=== PATIENT | female | born 1970 | race American Indian/Alaskan Native ===

== ENCOUNTER 2017-03-13 12:03 | Emergency (ER) | payer MEDICAID, OTHER ==
[2017-03-13 12:33] VITALS: BP 123/89
[2017-03-13 13:02] LABS: Basophils % (Auto) 0.4 % (0.0-1.8); Eosinophils % (Auto) 1.3 % (0.0-4.3); Hematocrit 39.2 % (30.3-42.9); Hemoglobin 12.1 gm/dl (10.1-14.3); Mean Corpuscular HGB Conc 31 % (30-34); Mean Corpuscular Volume 73 fl (79-97); Platelet Count 234 K/mm3 (140-440); Red Blood Count 5.34 M/mm3 (3.65-5.03); Red Cell Distribution Width 14.4 % (13.2-15.2); White Blood Count 9.1 K/mm3 (4.5-11.0)
[2017-03-13 13:09] LABS: Mean Corpuscular Hemoglobin 23 pg (28-32)
[2017-03-13 13:13] LABS: Alanine Aminotransferase 10 units/L (7-56); Albumin 3.5 g/dL (3.9-5); Albumin/Globulin Ratio 0.8 %; Alkaline Phosphatase 83 units/L (35-129); Anion Gap 18 mmol/L; Blood Urea Nitrogen 9 mg/dL (7-17); Calcium 9.3 mg/dL (8.4-10.2); Carbon Dioxide 24 mmol/L (22-30); Chloride 96.2 mmol/L (98-107); Glucose 362 mg/dL (65-100); Lipase 43 units/L (13-60); Potassium 5.1 mmol/L (3.6-5.0); Sodium 133 mmol/L (137-145); Total Protein 7.8 g/dL (6.3-8.2)
[2017-03-13 15:31] LABS: Bilirubin,Urine NEG (Negative); Blood,Urine NEG (Negative); Ketones,Urine 20 mg/dL (Negative); Leukocyte Esterase,Urine NEG (Negative); Nitrite,Urine NEG (Negative); Protein,Urine <15 mg/dL mg/dL (Negative); Urobilinogen,Urine < 2.0 mg/dL (<2.0); WBC,Urine < 1.0 /HPF (0.0-6.0)
== END 2017-03-13 18:38 | disposition left against medical advice (07) ==
LOC: ED 12:03
DX: R50.9 Fever, unspecified (principal); R10.9 Unspecified abdominal pain; Z53.21 Procedure and treatment not carried out due to patient leaving prior to being seen by health care provider
CPT/HCPCS: 36415; 80053; 81001; 83690; 85025

== ENCOUNTER 2017-09-15 06:50 | Emergency (ER) | payer MEDICAID ==
[2017-09-15 07:11] VITALS: BP 125/78
[2017-09-15] MEDS ORDERED: DECADRON IM ONE (07:49)
[2017-09-15] MEDS ORDERED: DUONEB *Not for PRN Use IH ONE (07:49)
--- NOTE | 2017-09-15 07:57 | XRay Report ---
FINAL REPORT EXAM: XR CHEST ROUTINE 2V HISTORY: cough TECHNIQUE: PA and lateral chest radiographs PRIORS: None. FINDINGS: No mediastinal shift. Cardiac silhouette is not enlarged. No pneumothorax, effusion, or focal pulmonary opacity. No acute skeletal finding. IMPRESSION: No focal pulmonary opacity.
[2017-09-15 08:15] LABS: Basophils # (Auto) 0.1 K/mm3 (0.0-0.1); Basophils % (Auto) 0.7 % (0.0-1.8); Eosinophils # (Auto) 0.2 K/mm3 (0.0-0.4); Eosinophils % (Auto) 2.6 % (0.0-4.3); Hematocrit 36.6 % (30.3-42.9); Hemoglobin 11.8 gm/dl (10.1-14.3); Lymphocytes % (Auto) 25.6 % (13.4-35.0); Mean Corpuscular HGB Conc 32 % (30-34); Mean Corpuscular Volume 70 fl (79-97); Monocytes # (Auto) 0.5 K/mm3 (0.0-0.8); Platelet Count 227 K/mm3 (140-440); Red Blood Count 5.21 M/mm3 (3.65-5.03); Red Cell Distribution Width 15.1 % (13.2-15.2)
--- NOTE | 2017-09-15 08:15 | Emergency Department Report ---
- General Chief Complaint: Upper Respiratory Infection Stated Complaint: CHEST PAIN,HEADACHE,SORE THROAT Time Seen by Provider: 09/15/17 07:14 Source: patient Mode of arrival: Ambulatory Limitations: No Limitations - History of Present Illness Initial Comments: This is a 47-year-old female nontoxic, well nourished in appearance, no acute signs of distress presents to the ED with c/o of productive cough, chest pain, shortness of breath, sore throat, rhinorrhea, nasal congestion x3 days. Patient describes chest pain as stabbing sensation but denies any radiation of chest pain. Patient states chest pain is worse during coughing episode. Patient describes productive cough as yellow mucus production. Patient also stated that during coughing episodes she develops shortness of breath. Patient denies any sick contact. Patient denies any recent travels, long car, recent hospital stays. Patient denies any calf pain or calf tenderness. Patient denies any body aches, fever, chills, nausea, vomiting, hemoptysis, numbness, tingling, headache or stiff neck. Patient denies any allergies. Past medical history includes diabetes. MD Complaint: cough, sore throat, rhinorrhea, nasal congestion, other (chest pain, shortness of breathe) -: days(s) (3) Severity: mild Severity scale (0 -10): 4 Quality: sharp Consistency: constant Improves With: nothing Worsens With: other (coughing) Associated Symptoms: rhinorrhea, nasal congestion, sore throat, cough, chest pain, shortness of breath. denies: fever, chills, myalgias, diaphoresis, headache, stiff neck, abdominal pain, nausea, vomiting, diarrhea, dysuria, rash , confusion, right sweats, weight loss, epistaxis, hoarseness, ear pain Treatments Prior to Arrival: none - Related Data Home Medications Medication Instructions Recorded Confirmed Last Taken Insulin Detemir [Levemir Flextouch] 32 unit SQ QHS 08/09/15 08/09/15 1 Day Ago ~08/08/15 Previous Rx's Medication Instructions Recorded Last Taken Type Diazepam Tab [Valium] 5 mg PO TID PRN #12 tablet 08/10/15 Unknown Rx ALBUTEROL Inhaler [ProAir HFA 2 puff IH QID PRN #1 inhalation 09/13/15 Unknown Rx Inhaler] Amoxicillin [Amoxicillin TAB] 875 mg PO BID #14 tablet 09/13/15 Unknown Rx Benzonatate [Tessalon Perles] 100 mg PO Q8HR #20 capsule 09/13/15 Unknown Rx Prednisone [predniSONE 5 mg (6-Day 5 mg PO .TAPER #1 tab.ds.pk 09/13/15 Unknown Rx Pack, 21 Tabs)] ALBUTEROL Inhaler [ProAir HFA 2 puff IH QID PRN #1 inhalation 09/15/17 Unknown Rx Inhaler] Azithromycin [Zithromax Z-BRENNAN] 250 mg PO DAILY #6 tablet 09/15/17 Unknown Rx Benzonatate [Tessalon Perle] 100 mg PO Q8H PRN #30 capsule 09/15/17 Unknown Rx Nystas/Diphen/Xyl Visc/Mylanta 15 ml MM Q4H PRN 10 Days ml 09/15/17 Unknown Rx [Magic Mouthwash] Prednisone [predniSONE 10 mg 10 mg PO .TAPER #1 tab.ds.pk 09/15/17 Unknown Rx (6-Day Pack, 21 Tabs)] Allergies Allergy/AdvReac Type Severity Reaction Status Date / Time No Known Allergies Allergy Unverified 09/04/14 13:38 ED Review of Systems ROS: Stated complaint: CHEST PAIN,HEADACHE,SORE THROAT Other details as noted in HPI Constitutional: denies: chills, fever Eyes: denies: eye pain, eye discharge, vision change ENT: throat pain. denies: ear pain Respiratory: cough, shortness of breath. denies: wheezing Cardiovascular: chest pain. denies: palpitations Endocrine: no symptoms reported Gastrointestinal: denies: abdominal pain, nausea, diarrhea Genitourinary: denies: urgency, dysuria, discharge Musculoskeletal: denies: back pain, joint swelling, arthralgia Skin: denies: rash, lesions Neurological: denies: headache, weakness, paresthesias Psychiatric: denies: anxiety, depression Hematological/Lymphatic: denies: easy bleeding, easy bruising ED Past Medical Hx - Past Medical History Hx Diabetes: Yes - Surgical History Past Surgical History?: Yes Additional Surgical History: hysterectomy - Social History Smoking Status: Never Smoker Substance Use Type: None - Medications Home Medications: Home Medications Medication Instructions Recorded Confirmed Last Taken Type Insulin Detemir [Levemir Flextouch] 32 unit SQ QHS 08/09/15 08/09/15 1 Day Ago History ~08/08/15 Diazepam Tab [Valium] 5 mg PO TID PRN #12 tablet 08/10/15 Unknown Rx ALBUTEROL Inhaler [ProAir HFA 2 puff IH QID PRN #1 inhalation 09/13/15 Unknown Rx Inhaler] Amoxicillin [Amoxicillin TAB] 875 mg PO BID #14 tablet 09/13/15 Unknown Rx Benzonatate [Tessalon Perles] 100 mg PO Q8HR #20 capsule 09/13/15 Unknown Rx Prednisone [predniSONE 5 mg (6-Day 5 mg PO .TAPER #1 tab.ds.pk 09/13/15 Unknown Rx Pack, 21 Tabs)] ALBUTEROL Inhaler [ProAir HFA 2 puff IH QID PRN #1 inhalation 09/15/17 Unknown Rx Inhaler] Azithromycin [Zithromax Z-BRENNAN] 250 mg PO DAILY #6 tablet 09/15/17 Unknown Rx Benzonatate [Tessalon Perle] 100 mg PO Q8H PRN #30 capsule 09/15/17 Unknown Rx Nystas/Diphen/Xyl Visc/Mylanta 15 ml MM Q4H PRN 10 Days ml 09/15/17 Unknown Rx [Magic Mouthwash] Prednisone [predniSONE 10 mg 10 mg PO .TAPER #1 tab.ds.pk 09/15/17 Unknown Rx (6-Day Pack, 21 Tabs)] ED Physical Exam - General Limitations: No Limitations General appearance: alert, in no apparent distress - Head Head exam: Present: atraumatic, normocephalic - Eye Eye exam: Present: normal appearance, PERRL, EOMI Pupils: Present: normal accommodation - ENT ENT exam: Present: normal exam, mucous membranes moist, TM's normal bilaterally , normal external ear exam - Expanded ENT Exam Expanded Ear exam: Present: normal external inspection Mouth exam: Present: normal external inspection, tongue normal. Absent: drooling, trismus, muffled voice, tongue elevation, laceration Teeth exam: Present: normal inspection Throat exam: Positive: tonsillar erythema, other (Uvula midline. No abscess or swelling noted. ). Negative: tonsillomegaly, tonsillar exudate, R peritonsillar mass, L peritonsillar mass - Neck Neck exam: Present: normal inspection - Respiratory Respiratory exam: Present: normal lung sounds bilaterally. Absent: respiratory distress - Cardiovascular Cardiovascular Exam: Present: regular rate, normal rhythm. Absent: systolic murmur, diastolic murmur, rubs, gallop - GI/Abdominal GI/Abdominal exam: Present: soft, normal bowel sounds - Extremities Exam Extremities exam: Present: normal inspection - Back Exam Back exam: Present: normal inspection - Neurological Exam Neurological exam: Present: alert, oriented X3 - Psychiatric Psychiatric exam: Present: normal affect, normal mood - Skin Skin exam: Present: warm, dry, intact, normal color. Absent: rash ED Course Vital Signs 09/15/17 09/15/17 07:07 08:21 Temperature 97.9 F Pulse Rate 89 88 Respiratory 20 Rate Blood Pressure 125/78 Blood Pressure 125/78 [Right] O2 Sat by Pulse 99 98 Oximetry - Reevaluation(s) Reevaluation #1: 09/15/17 08:31 Patient is speaking in full sentences with no signs of distress noted. ED Medical Decision Making - Lab Data Result diagrams: 09/15/17 08:03 - Medical Decision Making This is a 47-year-old female that presents with upper respiratory infection and pharyngitis. Patient is stable and was examined by me. Chest x-ray has been obtained and dictated by radiologist with normal exam. Patient is notified of x -ray results with no questions noted. EKG obtained with no acute changes, normal sinus rhythm, and no ST abnormalities. Patient received DuoNeb and Decadron in the ED which patient states his symptoms are improving and subsided. Patient stated that his chest pain and shortness of breath has subsided. Labs within normal limits with negative d-dimer and troponin. Harsha- score is 0 point. Heart score 2 points, low risk. Due to patient having symptoms of upper respiratory infection and worsening I will treat patient empirically prednisone and zpak. Patient was instructed to increase hydration , rest and take Motrin for fever episodes. Patient received motrin and tesslone perrls in the ED. Vitals stable. Patient is nonfebrile and normal heart rate. Patient was orally hydrated and patient tolerated well known nausea or vomiting. Patient was instructed Follow-up with a primary care doctor in 3- 5 days or if symptoms worsen and continue return to emergency room as soon as possible. At time time of discharge, the patient does not seem toxic or ill in appearance. No acute signs of distress noted. Patient agrees to discharge treatment plan of care. No further questions noted by the patient. Critical care attestation.: If time is entered above; I have spent that time in minutes in the direct care of this critically ill patient, excluding procedure time. ED Disposition Clinical Impression: Upper respiratory infection Qualifiers: URI type: unspecified URI Qualified Code(s): J06.9 - Acute upper respiratory infection, unspecified Pharyngitis Qualifiers: Pharyngitis/tonsillitis etiology: unspecified etiology Qualified Code(s): J02.9 - Acute pharyngitis, unspecified Disposition: TO HOME OR SELFCARE Is pt being admited?: No Does the pt Need Aspirin: No Condition: Stable Instructions: Upper Respiratory Infection (ED), Pharyngitis (ED), Azithromycin (By mouth), Prednisone (By mouth), Albuterol (By breathing) Additional Instructions: Follow-up with a primary care doctor in 3-5 days or if symptoms worsen and continue return to emergency room as soon as possible. Prescriptions: ALBUTEROL Inhaler [ProAir HFA Inhaler] 2 puff IH QID PRN #1 inhalation PRN Reason: Shortness Of Breath Azithromycin [Zithromax Z-BRENNAN] 250 mg PO DAILY #6 tablet Benzonatate [Tessalon Perle] 100 mg PO Q8H PRN #30 capsule PRN Reason: Cough Nystas/Diphen/Xyl Visc/Mylanta [Magic Mouthwash] 15 ml MM Q4H PRN 10 Days ml PRN Reason: Sore Throat Prednisone [predniSONE 10 mg (6-Day Pack, 21 Tabs)] 10 mg PO .TAPER #1 tab.ds.pk Referrals: PRIMARY CAREMD [Primary Care Provider] - 3-5 Days LYNNETTE ARCE MD [Staff Physician] - 3-5 Days [facility] [Outside] - 3-5 Days [facility] [Outside] - 3-5 Days Forms: Work/School Release Form(ED)
[2017-09-15 08:20] LABS: Mean Corpuscular Hemoglobin 23 pg (28-32)
[2017-09-15 08:34] LABS: BUN/Creatinine Ratio 18; Blood Urea Nitrogen 9 mg/dL (7-17); Calcium 9.1 mg/dL (8.4-10.2); Hemolysis Index 2
[2017-09-15] MEDS ORDERED: LIDOCAINE VISCOUS 2% PO ONE (08:36)
[2017-09-15] MEDS ORDERED: MOTRIN PO ONE (08:36)
== END 2017-09-15 08:45 | disposition home or self-care (01) ==
LOC: ED 06:50
DX: J06.9 Acute upper respiratory infection, unspecified (principal); J02.9 Acute pharyngitis, unspecified; E11.9 Type 2 diabetes mellitus without complications
CPT/HCPCS: 36415; 71046; 80048; 84484; 85025; 85379; 96372; 99284; J1100

== ENCOUNTER 2017-09-18 10:18 | Outpatient (CLI) | payer OTHER ==
--- NOTE | 2017-09-18 21:34 | XRay Report ---
FINAL REPORT PROCEDURE: XR KNEE BILAT 1-2V TECHNIQUE: Bilateral knee radiographs, standing AP view. HISTORY: HERNIATED DISC IN BACK COMPARISON: No prior studies are available for comparison. FINDINGS: Fracture (s) and/or Dislocation(s): None . Joint space(s): There is mild degenerative arthrosis of the medial knee compartment bilaterally. Soft tissues: Normal. Bone mineralization: Normal. Foreign bodies: None. There are incidental fabellas. IMPRESSION: There is no fracture or malalignment. There is degenerative arthrosis of the medial knee compartment bilaterally. There is no soft tissue swelling or joint effusion.
== END 2017-09-18 10:19 | disposition home or self-care (01) ==
LOC: XRAY 10:18
PROVIDERS: ATTEND Internal Medicine
DX: M17.0 Bilateral primary osteoarthritis of knee (principal); E11.9 Type 2 diabetes mellitus without complications

== ENCOUNTER 2018-04-20 08:06 | Emergency (ER) | payer SELFPAY ==
[2018-04-20 08:20] VITALS: BP 117/81
--- NOTE | 2018-04-20 08:54 | XRay Report ---
FINAL REPORT EXAM: XR CHEST ROUTINE 2V HISTORY: congestion TECHNIQUE: PA and lateral chest radiographs PRIORS: 09/15/2017 FINDINGS: No mediastinal shift. Cardiac silhouette is not enlarged. No pneumothorax, effusion, or focal pulmonary opacity. No acute skeletal finding. IMPRESSION: No focal pulmonary opacity.
--- NOTE | 2018-04-20 09:49 | Emergency Department Report ---
ED General Adult HPI - General Chief complaint: Back Pain/Injury Stated complaint: CHEST/BACK/RIB PAIN Time Seen by Provider: 04/20/18 09:10 Source: patient Mode of arrival: Ambulatory Limitations: No Limitations - History of Present Illness Initial comments: This is a 47-year-old female nontoxic, well nourished in appearance, no acute signs of distress presents to the ED with c/o of nonproductive cough that causes right lateral rib pain and mid back pain. Patient stated pain is only during cough. Patient stated that cough is a dry nonproductive the study yesterday. Patient denies any fever, chills, abdominal pain, chest pain, short of breath, headache, stiff neck, numbness or tingling. Patient denies hemoptysis. Patient denies any allergies. Denies any recent travels or long car rides. Denies any calf pain or calf tenderness. Patient denies any history of DVT or PE. Past medical history diabetes. -: days(s) (1) Improves with: none Worsens with: none Associated Symptoms: cough. denies: confusion, chest pain, diaphoresis, fever/ chills, headaches, loss of appetite, malaise, nausea/vomiting, rash, seizure, shortness of breath, syncope, weakness Treatments Prior to Arrival: none - Related Data Home Medications Medication Instructions Recorded Confirmed Last Taken Insulin Detemir [Levemir Flextouch] 32 unit SQ QHS 08/09/15 08/09/15 1 Day Ago ~08/08/15 Previous Rx's Medication Instructions Recorded Last Taken Type diazePAM TAB [Valium] 5 mg PO TID PRN #12 tablet 08/10/15 Unknown Rx ALBUTEROL Inhaler (OR & NICU) 2 puff IH QID PRN #1 inhalation 09/13/15 Unknown Rx [ProAir HFA Inhaler] Amoxicillin [Amoxicillin TAB] 875 mg PO BID #14 tablet 09/13/15 Unknown Rx Benzonatate [Tessalon Perles] 100 mg PO Q8HR #20 capsule 09/13/15 Unknown Rx Prednisone [predniSONE 5 mg (6-Day 5 mg PO .TAPER #1 tab.ds.pk 09/13/15 Unknown Rx Pack, 21 Tabs)] ALBUTEROL Inhaler (OR & NICU) 2 puff IH QID PRN #1 inhalation 09/15/17 Unknown Rx [ProAir HFA Inhaler] Azithromycin [Zithromax Z-BRENNAN] 250 mg PO DAILY #6 tablet 09/15/17 Unknown Rx Benzonatate [Tessalon Perle] 100 mg PO Q8H PRN #30 capsule 09/15/17 Unknown Rx Nystas/Diphen/Xyl Visc/Mylanta 15 ml MM Q4H PRN 10 Days ml 09/15/17 Unknown Rx [Magic Mouthwash] Prednisone [predniSONE 10 mg 10 mg PO .TAPER #1 tab.ds.pk 09/15/17 Unknown Rx (6-Day Pack, 21 Tabs)] Acetaminophen/Codeine [Tylenol 1 tab PO Q6H PRN #12 tab 04/20/18 Unknown Rx /Codeine # 3 tab] Benzonatate [Tessalon Perle] 100 mg PO Q6H PRN #20 capsule 04/20/18 Unknown Rx Prednisone [predniSONE 10 mg 10 mg PO .TAPER #1 tab.ds.pk 04/20/18 Unknown Rx (6-Day Pack, 21 Tabs)] Allergies Allergy/AdvReac Type Severity Reaction Status Date / Time No Known Allergies Allergy Unverified 09/04/14 13:38 ED Review of Systems ROS: Stated complaint: CHEST/BACK/RIB PAIN Other details as noted in HPI Constitutional: denies: chills, fever Eyes: denies: eye pain, eye discharge, vision change ENT: denies: ear pain, throat pain Respiratory: cough. denies: shortness of breath, wheezing Cardiovascular: denies: chest pain, palpitations Endocrine: no symptoms reported Gastrointestinal: denies: abdominal pain, nausea, diarrhea Genitourinary: denies: urgency, dysuria, discharge Musculoskeletal: denies: back pain, joint swelling, arthralgia Skin: denies: rash, lesions Neurological: denies: headache, weakness, paresthesias Psychiatric: denies: anxiety, depression Hematological/Lymphatic: denies: easy bleeding, easy bruising ED Past Medical Hx - Past Medical History Hx Diabetes: Yes - Surgical History Additional Surgical History: hysterectomy - Social History Smoking Status: Never Smoker Substance Use Type: None - Medications Home Medications: Home Medications Medication Instructions Recorded Confirmed Last Taken Type Insulin Detemir [Levemir Flextouch] 32 unit SQ QHS 08/09/15 08/09/15 1 Day Ago History ~08/08/15 diazePAM TAB [Valium] 5 mg PO TID PRN #12 tablet 08/10/15 Unknown Rx ALBUTEROL Inhaler (OR & NICU) 2 puff IH QID PRN #1 inhalation 09/13/15 Unknown Rx [ProAir HFA Inhaler] Amoxicillin [Amoxicillin TAB] 875 mg PO BID #14 tablet 09/13/15 Unknown Rx Benzonatate [Tessalon Perles] 100 mg PO Q8HR #20 capsule 09/13/15 Unknown Rx Prednisone [predniSONE 5 mg (6-Day 5 mg PO .TAPER #1 tab.ds.pk 09/13/15 Unknown Rx Pack, 21 Tabs)] ALBUTEROL Inhaler (OR & NICU) 2 puff IH QID PRN #1 inhalation 09/15/17 Unknown Rx [ProAir HFA Inhaler] Azithromycin [Zithromax Z-BRENNAN] 250 mg PO DAILY #6 tablet 09/15/17 Unknown Rx Benzonatate [Tessalon Perle] 100 mg PO Q8H PRN #30 capsule 09/15/17 Unknown Rx Nystas/Diphen/Xyl Visc/Mylanta 15 ml MM Q4H PRN 10 Days ml 09/15/17 Unknown Rx [Magic Mouthwash] Prednisone [predniSONE 10 mg 10 mg PO .TAPER #1 tab.ds.pk 09/15/17 Unknown Rx (6-Day Pack, 21 Tabs)] Acetaminophen/Codeine [Tylenol 1 tab PO Q6H PRN #12 tab 04/20/18 Unknown Rx /Codeine # 3 tab] Benzonatate [Tessalon Perle] 100 mg PO Q6H PRN #20 capsule 04/20/18 Unknown Rx Prednisone [predniSONE 10 mg 10 mg PO .TAPER #1 tab.ds.pk 04/20/18 Unknown Rx (6-Day Pack, 21 Tabs)] ED Physical Exam - General Limitations: No Limitations General appearance: alert, in no apparent distress - Head Head exam: Present: atraumatic, normocephalic - Eye Eye exam: Present: normal appearance Pupils: Present: normal accommodation - ENT ENT exam: Present: normal exam, mucous membranes moist - Neck Neck exam: Present: normal inspection, full ROM. Absent: tenderness, meningismus, lymphadenopathy - Respiratory Respiratory exam: Present: normal lung sounds bilaterally, chest wall tenderness (right lateral rib pain). Absent: respiratory distress, wheezes, rales, rhonchi, stridor, accessory muscle use, decreased breath sounds, prolonged expiratory - Cardiovascular Cardiovascular Exam: Present: regular rate, normal rhythm, normal heart sounds. Absent: bradycardia, tachycardia, irregular rhythm, systolic murmur, diastolic murmur, rubs, gallop - GI/Abdominal GI/Abdominal exam: Present: soft, normal bowel sounds. Absent: distended, tenderness, guarding, rebound, rigid, diminished bowel sounds - Rectal Rectal exam: Present: deferred - Extremities Exam Extremities exam: Present: normal inspection, full ROM, normal capillary refill. Absent: tenderness - Back Exam Back exam: Present: normal inspection, full ROM. Absent: tenderness, CVA tenderness (R), CVA tenderness (L), muscle spasm, paraspinal tenderness, vertebral tenderness, rash noted - Neurological Exam Neurological exam: Present: alert, oriented X3, normal gait - Psychiatric Psychiatric exam: Present: normal affect, normal mood - Skin Skin exam: Present: warm, dry, intact, normal color. Absent: rash ED Course Vital Signs 04/20/18 08:17 Temperature 97.6 F Pulse Rate 90 Respiratory 16 Rate Blood Pressure 117/81 O2 Sat by Pulse 99 Oximetry - Reevaluation(s) Reevaluation #1: 04/20/18 09:48 Patient is speaking in full sentences with no signs of distress. ED Medical Decision Making - Lab Data Result diagrams: 04/20/18 09:19 04/20/18 09:19 - Medical Decision Making This is a 47-year-old female that presents with bronchitis and costochondritis. Patient is stable and was examined by me. TARA and HEART score 0 pints. Wells criteria for DVT/SVT/PE 0 points. Negative d-dimmer. EKG normal sinus rhythm with no significant changes in ST. Chest xray dictated by the radiologist. PAtient is notified of the Xray report with no questions noted. Labs within normal limits. Patient received Toradol 30 mg IM and prednisone in the ED which she stated his symptoms are improving subsided. I will discharge patient with Prednisone and Tylenol with Codeine. Patient was instructed to Follow-up with a primary care doctor in 3-5 days or if symptoms worsen and continue return to emergency room as soon as possible. At time of discharge, the patient does not seem toxic or ill in appearance. No acute signs of distress noted. Patient agrees to discharge treatment plan of care. No further questions noted by the patient. Critical care attestation.: If time is entered above; I have spent that time in minutes in the direct care of this critically ill patient, excluding procedure time. ED Disposition Clinical Impression: Bronchitis, Costochondritis, acute Disposition: [id number] TO HOME OR SELFCARE Is pt being admited?: No Does the pt Need Aspirin: No Condition: Stable Instructions: Acute Bronchitis (ED), Costochondritis (ED) Additional Instructions: Follow-up with a primary care doctor in 3-5 days or if symptoms worsen and continue return to emergency room as soon as possible. Prescriptions: Acetaminophen/Codeine [Tylenol /Codeine # 3 tab] 1 tab PO Q6H PRN #12 tab PRN Reason: Pain , Severe (7-10) Benzonatate [Tessalon Perle] 100 mg PO Q6H PRN #20 capsule PRN Reason: Cough Prednisone [predniSONE 10 mg (6-Day Pack, 21 Tabs)] 10 mg PO .TAPER #1 tab.ds.pk Referrals: PRIMARY CARE, [Primary Care Provider] - 3-5 Days LYNNETTE ARCE MD [Staff Physician] - 3-5 Days [facility] [Outside] - 3-5 Days [facility] [Outside] - 3-5 Days Forms: Work/School Release Form(ED)
[2018-04-20] MEDS ORDERED: DELTASONE PO ONE (09:51)
[2018-04-20] MEDS ORDERED: TORADOL IM ONE (09:51)
[2018-04-20] MEDS ORDERED: TESSALON PERLES PO ONE (09:51)
[2018-04-20 09:52] LABS: BUN/Creatinine Ratio 18; Blood Urea Nitrogen 9 mg/dL (7-17); Calcium 9.4 mg/dL (8.4-10.2); Hemolysis Index 7
[2018-04-20 09:54] LABS: Basophils % (Auto) 0.4 % (0.0-1.8); Eosinophils # (Auto) 0.2 K/mm3 (0.0-0.4); Eosinophils % (Auto) 2.5 % (0.0-4.3); Hematocrit 35.6 % (30.3-42.9); Hemoglobin 11.2 gm/dl (10.1-14.3); Lymphocytes # (Auto) 1.7 K/mm3 (1.2-5.4); Lymphocytes % (Auto) 24.1 % (13.4-35.0); Mean Corpuscular HGB Conc 32 % (30-34); Mean Corpuscular Volume 71 fl (79-97); Monocytes # (Auto) 0.4 K/mm3 (0.0-0.8); Monocytes % (Auto) 6.4 % (0.0-7.3); Platelet Count 200 K/mm3 (140-440); Red Cell Distribution Width 14.7 % (13.2-15.2)
[2018-04-20 10:01] LABS: Mean Corpuscular Hemoglobin 23 pg (28-32)
== END 2018-04-20 11:07 | disposition home or self-care (01) ==
LOC: ED 08:06
DX: M94.0 Chondrocostal junction syndrome [Tietze] (principal); J40 Bronchitis, not specified as acute or chronic; E11.9 Type 2 diabetes mellitus without complications; Z90.710 Acquired absence of both cervix and uterus; Z79.4 Long term (current) use of insulin
CPT/HCPCS: 36415; 71046; 80048; 85025; 85379; 93005; 93010; 96372; 99284; J1885; J7512

== ENCOUNTER 2018-11-15 16:52 | Emergency (ER) | payer MEDICAID ==
--- NOTE | 2018-11-15 17:23 | Emergency Department Report ---
Blank Doc - Documentation Documentation: y/o diabetic female presents to ED c/o of right axilla abscess and c/o pain to area.
[2018-11-15 17:24] VITALS: BP 102/81
[2018-11-15] MEDS ORDERED: KEFLEX PO ONE (18:46)
[2018-11-15] MEDS ORDERED: NORCO 5/325 PO ONE (18:46)
--- NOTE | 2018-11-15 18:51 | Emergency Department Report ---
- General Chief complaint: Skin/Abscess/Foreign Body Stated complaint: DRY COUGH/BOIL RT AXILLA Time Seen by Provider: 11/15/18 17:21 Source: patient Mode of arrival: Ambulatory Limitations: No Limitations - History of Present Illness Initial comments: This 48-year-old female with diabetes who presents for right before meals abscess 3 days symptoms include pain erythema fluctuance is no fever or chills no nausea vomiting MD complaint: abscess/boil Onset/Timin -: days(s) Tetanus Up to Date: yes Location: RUE Severity: moderate Severity scale (0 -10): 5 Quality: burning Consistency: intermittent Improves with: none Worsens with: palpation, movement Context: none Associated symptoms: itching Treatments Prior to Arrival: none - Related Data Home Medications Medication Instructions Recorded Confirmed Last Taken Insulin Detemir [Levemir Flextouch] 32 unit SQ QHS 08/09/15 08/09/15 1 Day Ago ~08/08/15 Previous Rx's Medication Instructions Recorded Last Taken Type diazePAM TAB [Valium] 5 mg PO TID PRN #12 tablet 08/10/15 Unknown Rx ALBUTEROL Inhaler (OR & NICU) 2 puff IH QID PRN #1 inhalation 09/13/15 Unknown Rx [ProAir HFA Inhaler] Amoxicillin [Amoxicillin TAB] 875 mg PO BID #14 tablet 09/13/15 Unknown Rx Benzonatate [Tessalon Perles] 100 mg PO Q8HR #20 capsule 09/13/15 Unknown Rx Prednisone [predniSONE 5 mg (6-Day 5 mg PO .TAPER #1 tab.ds.pk 09/13/15 Unknown Rx Pack, 21 Tabs)] ALBUTEROL Inhaler (OR & NICU) 2 puff IH QID PRN #1 inhalation 09/15/17 Unknown Rx [ProAir HFA Inhaler] Azithromycin [Zithromax Z-BRENNAN] 250 mg PO DAILY #6 tablet 09/15/17 Unknown Rx Benzonatate [Tessalon Perle] 100 mg PO Q8H PRN #30 capsule 09/15/17 Unknown Rx Nystas/Diphen/Xyl Visc/Mylanta 15 ml MM Q4H PRN 10 Days ml 09/15/17 Unknown Rx [Magic Mouthwash] Prednisone [predniSONE 10 mg 10 mg PO .TAPER #1 tab.ds.pk 09/15/17 Unknown Rx (6-Day Pack, 21 Tabs)] Acetaminophen/Codeine [Tylenol 1 tab PO Q6H PRN #12 tab 04/20/18 Unknown Rx /Codeine # 3 tab] Benzonatate [Tessalon Perle] 100 mg PO Q6H PRN #20 capsule 04/20/18 Unknown Rx Prednisone [predniSONE 10 mg 10 mg PO .TAPER #1 tab.ds.pk 04/20/18 Unknown Rx (6-Day Pack, 21 Tabs)] Acetaminophen/Codeine [Tylenol 1 tab PO Q6H PRN #12 tab 11/15/18 Unknown Rx /Codeine # 3 tab] cephALEXin [Keflex] 500 mg PO Q8HR 10 Days #30 cap 11/15/18 Unknown Rx Allergies Allergy/AdvReac Type Severity Reaction Status Date / Time No Known Allergies Allergy Unverified 11/15/18 17:05 Abscess Boil HPI - HPI Chief Complaint: Skin/Abscess/Foreign Body Stated Complaint: DRY COUGH/BOIL RT AXILLA Time Seen by Provider: 11/15/18 17:21 Home Medications: Home Medications Medication Instructions Recorded Confirmed Last Taken Insulin Detemir [Levemir Flextouch] 32 unit SQ QHS 08/09/15 08/09/15 1 Day Ago ~08/08/15 Previous Rx's Medication Instructions Recorded Last Taken Type diazePAM TAB [Valium] 5 mg PO TID PRN #12 tablet 08/10/15 Unknown Rx ALBUTEROL Inhaler (OR & NICU) 2 puff IH QID PRN #1 inhalation 09/13/15 Unknown Rx [ProAir HFA Inhaler] Amoxicillin [Amoxicillin TAB] 875 mg PO BID #14 tablet 09/13/15 Unknown Rx Benzonatate [Tessalon Perles] 100 mg PO Q8HR #20 capsule 09/13/15 Unknown Rx Prednisone [predniSONE 5 mg (6-Day 5 mg PO .TAPER #1 tab.ds.pk 09/13/15 Unknown Rx Pack, 21 Tabs)] ALBUTEROL Inhaler (OR & NICU) 2 puff IH QID PRN #1 inhalation 09/15/17 Unknown Rx [ProAir HFA Inhaler] Azithromycin [Zithromax Z-BRENNAN] 250 mg PO DAILY #6 tablet 09/15/17 Unknown Rx Benzonatate [Tessalon Perle] 100 mg PO Q8H PRN #30 capsule 09/15/17 Unknown Rx Nystas/Diphen/Xyl Visc/Mylanta 15 ml MM Q4H PRN 10 Days ml 09/15/17 Unknown Rx [Magic Mouthwash] Prednisone [predniSONE 10 mg 10 mg PO .TAPER #1 tab.ds.pk 09/15/17 Unknown Rx (6-Day Pack, 21 Tabs)] Acetaminophen/Codeine [Tylenol 1 tab PO Q6H PRN #12 tab 04/20/18 Unknown Rx /Codeine # 3 tab] Benzonatate [Tessalon Perle] 100 mg PO Q6H PRN #20 capsule 04/20/18 Unknown Rx Prednisone [predniSONE 10 mg 10 mg PO .TAPER #1 tab.ds.pk 04/20/18 Unknown Rx (6-Day Pack, 21 Tabs)] Acetaminophen/Codeine [Tylenol 1 tab PO Q6H PRN #12 tab 11/15/18 Unknown Rx /Codeine # 3 tab] cephALEXin [Keflex] 500 mg PO Q8HR 10 Days #30 cap 11/15/18 Unknown Rx Allergies/Adverse Reactions: Allergies Allergy/AdvReac Type Severity Reaction Status Date / Time No Known Allergies Allergy Unverified 11/15/18 17:05 ED Review of Systems ROS: Stated complaint: DRY COUGH/BOIL RT AXILLA Other details as noted in HPI Constitutional: denies: chills, fever Eyes: denies: eye pain, eye discharge, vision change ENT: denies: ear pain, throat pain Respiratory: denies: cough, shortness of breath, wheezing Cardiovascular: denies: chest pain, palpitations Endocrine: no symptoms reported Gastrointestinal: denies: abdominal pain, nausea, diarrhea Genitourinary: denies: urgency, dysuria, discharge Musculoskeletal: denies: back pain, joint swelling, arthralgia Skin: lesions (abscess right axillary ). denies: rash Neurological: denies: headache, weakness, paresthesias Psychiatric: denies: anxiety, depression Hematological/Lymphatic: denies: easy bleeding, easy bruising ED Past Medical Hx - Past Medical History Previous Medical History?: Yes Hx Diabetes: Yes - Surgical History Past Surgical History?: Yes Additional Surgical History: hysterectomy - Social History Smoking Status: Never Smoker Substance Use Type: None - Medications Home Medications: Home Medications Medication Instructions Recorded Confirmed Last Taken Type Insulin Detemir [Levemir Flextouch] 32 unit SQ QHS 08/09/15 08/09/15 1 Day Ago History ~08/08/15 diazePAM TAB [Valium] 5 mg PO TID PRN #12 tablet 08/10/15 Unknown Rx ALBUTEROL Inhaler (OR & NICU) 2 puff IH QID PRN #1 inhalation 09/13/15 Unknown Rx [ProAir HFA Inhaler] Amoxicillin [Amoxicillin TAB] 875 mg PO BID #14 tablet 09/13/15 Unknown Rx Benzonatate [Tessalon Perles] 100 mg PO Q8HR #20 capsule 09/13/15 Unknown Rx Prednisone [predniSONE 5 mg (6-Day 5 mg PO .TAPER #1 tab.ds.pk 09/13/15 Unknown Rx Pack, 21 Tabs)] ALBUTEROL Inhaler (OR & NICU) 2 puff IH QID PRN #1 inhalation 09/15/17 Unknown Rx [ProAir HFA Inhaler] Azithromycin [Zithromax Z-BRENNAN] 250 mg PO DAILY #6 tablet 09/15/17 Unknown Rx Benzonatate [Tessalon Perle] 100 mg PO Q8H PRN #30 capsule 09/15/17 Unknown Rx Nystas/Diphen/Xyl Visc/Mylanta 15 ml MM Q4H PRN 10 Days ml 09/15/17 Unknown Rx [Magic Mouthwash] Prednisone [predniSONE 10 mg 10 mg PO .TAPER #1 tab.ds.pk 09/15/17 Unknown Rx (6-Day Pack, 21 Tabs)] Acetaminophen/Codeine [Tylenol 1 tab PO Q6H PRN #12 tab 04/20/18 Unknown Rx /Codeine # 3 tab] Benzonatate [Tessalon Perle] 100 mg PO Q6H PRN #20 capsule 04/20/18 Unknown Rx Prednisone [predniSONE 10 mg 10 mg PO .TAPER #1 tab.ds.pk 04/20/18 Unknown Rx (6-Day Pack, 21 Tabs)] Acetaminophen/Codeine [Tylenol 1 tab PO Q6H PRN #12 tab 11/15/18 Unknown Rx /Codeine # 3 tab] cephALEXin [Keflex] 500 mg PO Q8HR 10 Days #30 cap 11/15/18 Unknown Rx ED Physical Exam - General Limitations: No Limitations General appearance: alert, in no apparent distress - Head Head exam: Present: atraumatic, normocephalic - Eye Eye exam: Present: normal appearance - ENT ENT exam: Present: mucous membranes moist - Neck Neck exam: Present: normal inspection, full ROM - Respiratory Respiratory exam: Present: normal lung sounds bilaterally. Absent: respiratory distress - Cardiovascular Cardiovascular Exam: Present: regular rate, normal rhythm, normal heart sounds. Absent: systolic murmur, diastolic murmur, rubs, gallop - GI/Abdominal GI/Abdominal exam: Present: soft, normal bowel sounds. Absent: tenderness, bruit, hernia - Rectal Rectal exam: Present: deferred - Extremities Exam Extremities exam: Present: full ROM, tenderness (right axillary abscess 1x2 cm eryrthema pain fluctuant ), normal capillary refill. Absent: joint swelling - Expanded Upper Extremity Exam Right General: Present: other (right axillary abacess 1x2 cm ) Vascular: Present: normal capillary refill, radial pulse, brachial pulse, ulnar pulse - Back Exam Back exam: Present: normal inspection, full ROM. Absent: tenderness - Neurological Exam Neurological exam: Present: alert, oriented X3, CN II-XII intact, normal gait - Psychiatric Psychiatric exam: Present: normal affect, normal mood - Skin Skin exam: Present: warm, dry, intact, normal color. Absent: rash ED Course Vital Signs 11/15/18 17:22 Temperature 98 F Pulse Rate 107 H Respiratory 16 Rate Blood Pressure 102/81 [Left] O2 Sat by Pulse 99 Oximetry - I & D Right Arm Type of Procedure: Simple Site: right axillary abscess 1x2 cm, Blade Size: 11 I & D Procedure: betadine prep, sterile dressing applied Progress: right axillary abscess wound cleaned with betadine solution, anesthesia with 1% lidcaine 2 cc, incision with 11 blade scalple, blunt probbed with 6 inch forcepts , moderate purulent drainage wound irrigated with 40 cc sterile saline , iodoform packing place, sterile dressing applied all bleeding is controlled pt tolerated procedure with minimal distress. pt given wound care instructions. ED Medical Decision Making - Radiology Data Radiology results: report reviewed, image reviewed - Medical Decision Making this is a axillary abscess see I&D procedure note, pt tolerated procedure with minimal distress, all bleeding is controlled sterile dressing is intact, pt will follow up with pcp in 2 days return to ed if symptoms worsen, dc'd rx for keflex and tylenol 3 , pt is currently a/o x 3 ambulatory with steady gait. Critical care attestation.: If time is entered above; I have spent that time in minutes in the direct care of this critically ill patient, excluding procedure time. ED Disposition Clinical Impression: Abscess Disposition: DC-01 TO HOME OR SELFCARE Is pt being admited?: No Does the pt Need Aspirin: No Condition: Stable Instructions: Abscess (ED) Prescriptions: cephALEXin [Keflex] 500 mg PO Q8HR 10 Days #30 cap Acetaminophen/Codeine [Tylenol /Codeine # 3 tab] 1 tab PO Q6H PRN #12 tab PRN Reason: pain Referrals: YON DIXON [Other] - 3-5 Days Forms: Work/School Release Form(ED) Time of Disposition: 18:58
== END 2018-11-15 19:08 | disposition home or self-care (01) ==
LOC: ED 16:52
DX: L02.411 Cutaneous abscess of right axilla (principal); E11.9 Type 2 diabetes mellitus without complications; Z90.710 Acquired absence of both cervix and uterus
CPT/HCPCS: 99282

== ENCOUNTER 2018-12-28 16:18 | Emergency (ER) | payer MEDICAID ==
--- NOTE | 2018-12-28 17:49 | Event Note ---
ED Screening Note Date of service: 12/28/18 Time: 17:49 ED Screening Note: 48 y/o female c/o boils in her head for 2 days. She reports they are painful. This initial assessment/diagnostic orders/clinical plan/treatment(s) is/are subject to change based on patients health status, clinical progression and re- assessment by fellow clinical providers in the ED. Further treatment and workup at subsequent clinical providers discretion. Patient/guardian urged not to elope from the ED as their condition may be serious if not clinically assessed and managed. Initial orders include:
[2018-12-28] MEDS ORDERED: NORCO 5/325 PO ONE (19:24)
--- NOTE | 2018-12-28 19:29 | Emergency Department Report ---
Abscess Boil HPI - HPI Chief Complaint: Skin/Abscess/Foreign Body Stated Complaint: NECK PAIN/FEVER Time Seen by Provider: 12/28/18 16:55 Duration: 2 Days Location: Head Severity: Moderate History: Yes Pain, No Fever, No Purulent Drainage, No Numbness, No Foreign Body, No Previous History, No Insect Bite HPI: This is a 48 year-old female presents to emergency room with since 2 parietal and occipital scalp. Patient states she noticed abscess days ago. She reports both are very painful and caused him pain to right side of face. Patient states she got her hair braided 4 weeks ago and not sure if abscess occurred from wilder. She denies drainage or fever. Home Medications: Home Medications Medication Instructions Recorded Confirmed Last Taken Insulin Detemir [Levemir Flextouch] 32 unit SQ QHS 08/09/15 08/09/15 1 Day Ago ~08/08/15 Previous Rx's Medication Instructions Recorded Last Taken Type diazePAM TAB [Valium] 5 mg PO TID PRN #12 tablet 08/10/15 Unknown Rx ALBUTEROL Inhaler (OR & NICU) 2 puff IH QID PRN #1 inhalation 09/13/15 Unknown Rx [ProAir HFA Inhaler] Amoxicillin [Amoxicillin TAB] 875 mg PO BID #14 tablet 09/13/15 Unknown Rx Benzonatate [Tessalon Perles] 100 mg PO Q8HR #20 capsule 09/13/15 Unknown Rx Prednisone [predniSONE 5 mg (6-Day 5 mg PO .TAPER #1 tab.ds.pk 09/13/15 Unknown Rx Pack, 21 Tabs)] ALBUTEROL Inhaler (OR & NICU) 2 puff IH QID PRN #1 inhalation 09/15/17 Unknown Rx [ProAir HFA Inhaler] Azithromycin [Zithromax Z-BRENNAN] 250 mg PO DAILY #6 tablet 09/15/17 Unknown Rx Benzonatate [Tessalon Perle] 100 mg PO Q8H PRN #30 capsule 09/15/17 Unknown Rx Nystas/Diphen/Xyl Visc/Mylanta 15 ml MM Q4H PRN 10 Days ml 09/15/17 Unknown Rx [Magic Mouthwash] Prednisone [predniSONE 10 mg 10 mg PO .TAPER #1 tab.ds.pk 09/15/17 Unknown Rx (6-Day Pack, 21 Tabs)] Acetaminophen/Codeine [Tylenol 1 tab PO Q6H PRN #12 tab 04/20/18 Unknown Rx /Codeine # 3 tab] Benzonatate [Tessalon Perle] 100 mg PO Q6H PRN #20 capsule 04/20/18 Unknown Rx Prednisone [predniSONE 10 mg 10 mg PO .TAPER #1 tab.ds.pk 04/20/18 Unknown Rx (6-Day Pack, 21 Tabs)] Acetaminophen/Codeine [Tylenol 1 tab PO Q6H PRN #12 tab 11/15/18 Unknown Rx /Codeine # 3 tab] cephALEXin [Keflex] 500 mg PO Q8HR 10 Days #30 cap 11/15/18 Unknown Rx Clindamycin [Clindamycin CAP] 300 mg PO Q6H 10 Days #40 capsule 12/28/18 Unknown Rx Ketoconazole [Ketoconazole shampoo] 120 ml TP 3XW #1 shampoo 12/28/18 Unknown Rx Allergies/Adverse Reactions: Allergies Allergy/AdvReac Type Severity Reaction Status Date / Time No Known Allergies Allergy Verified 12/28/18 16:24 ED Review of Systems ROS: Stated complaint: NECK PAIN/FEVER Other details as noted in HPI Constitutional: denies: chills, fever Respiratory: denies: cough, shortness of breath, wheezing Cardiovascular: denies: chest pain, palpitations Gastrointestinal: denies: abdominal pain, nausea, diarrhea Skin: lesions (abscesses 2 to scalp). denies: rash Neurological: denies: headache, weakness, paresthesias ED Past Medical Hx - Past Medical History Hx Diabetes: Yes - Surgical History Additional Surgical History: hysterectomy - Social History Smoking Status: Never Smoker Substance Use Type: None - Medications Home Medications: Home Medications Medication Instructions Recorded Confirmed Last Taken Type Insulin Detemir [Levemir Flextouch] 32 unit SQ QHS 08/09/15 08/09/15 1 Day Ago History ~08/08/15 diazePAM TAB [Valium] 5 mg PO TID PRN #12 tablet 08/10/15 Unknown Rx ALBUTEROL Inhaler (OR & NICU) 2 puff IH QID PRN #1 inhalation 09/13/15 Unknown Rx [ProAir HFA Inhaler] Amoxicillin [Amoxicillin TAB] 875 mg PO BID #14 tablet 09/13/15 Unknown Rx Benzonatate [Tessalon Perles] 100 mg PO Q8HR #20 capsule 09/13/15 Unknown Rx Prednisone [predniSONE 5 mg (6-Day 5 mg PO .TAPER #1 tab.ds.pk 09/13/15 Unknown Rx Pack, 21 Tabs)] ALBUTEROL Inhaler (OR & NICU) 2 puff IH QID PRN #1 inhalation 09/15/17 Unknown Rx [ProAir HFA Inhaler] Azithromycin [Zithromax Z-BRENNAN] 250 mg PO DAILY #6 tablet 09/15/17 Unknown Rx Benzonatate [Tessalon Perle] 100 mg PO Q8H PRN #30 capsule 09/15/17 Unknown Rx Nystas/Diphen/Xyl Visc/Mylanta 15 ml MM Q4H PRN 10 Days ml 09/15/17 Unknown Rx [Magic Mouthwash] Prednisone [predniSONE 10 mg 10 mg PO .TAPER #1 tab.ds.pk 09/15/17 Unknown Rx (6-Day Pack, 21 Tabs)] Acetaminophen/Codeine [Tylenol 1 tab PO Q6H PRN #12 tab 04/20/18 Unknown Rx /Codeine # 3 tab] Benzonatate [Tessalon Perle] 100 mg PO Q6H PRN #20 capsule 04/20/18 Unknown Rx Prednisone [predniSONE 10 mg 10 mg PO .TAPER #1 tab.ds.pk 04/20/18 Unknown Rx (6-Day Pack, 21 Tabs)] Acetaminophen/Codeine [Tylenol 1 tab PO Q6H PRN #12 tab 11/15/18 Unknown Rx /Codeine # 3 tab] cephALEXin [Keflex] 500 mg PO Q8HR 10 Days #30 cap 11/15/18 Unknown Rx Clindamycin [Clindamycin CAP] 300 mg PO Q6H 10 Days #40 capsule 12/28/18 Unknown Rx Ketoconazole [Ketoconazole shampoo] 120 ml TP 3XW #1 shampoo 12/28/18 Unknown Rx ED Abscess Boil Physical Exam - Exam General: Vital signs noted. No distress. Alert and acting appropriately. Front/Back of Body, Lg (Color): 1 - 1 cm fluctuant nodule to right parietal scalp, tenderness, no drainage or surrounding cellulitis. 2 - 1 cm nonfluctuant with nodule to the left posterior scalp, tenderness, no drainage or surrounding cellulitis. Size: 1 cm Exam: Yes Tenderness, Yes Normal Neurologic Exam, Yes Normal Circulation, No Fluctuance, No Surrounding Cellulites/Erythema, No Lymphangitis, No Crepitation, No Heart Murmur ED Course Vital Signs 12/28/18 17:36 Temperature 97.9 F Pulse Rate 124 H Respiratory 18 Rate Blood Pressure 137/92 O2 Sat by Pulse 97 Oximetry Vital Signs 12/28/18 12/28/18 17:36 21:45 Temperature 97.9 F 98.9 F Pulse Rate 124 H 97 H Respiratory 18 18 Rate Blood Pressure 137/92 Blood Pressure 134/87 [Right] O2 Sat by Pulse 97 100 Oximetry Critical care attestation.: If time is entered above; I have spent that time in minutes in the direct care of this critically ill patient, excluding procedure time. ED Medical Decision Making - Medical Decision Making This is a 48 y.o. female that presents with a painful abscess 2, one at right parietal scalp and one at left occipital scalp. Patient is stable and examined by me. Past medical history of diabetes type 2. Findings are suggestive of folliculitis. No acute signs of distress noted. Given norco 5 mg po once in ER. Patient will be started on antibiotics and analgesics. Educated patient on follow up plan to have wound reassessed in 2-3 days by a primary care doctor, urgent care. She was instructed to the return to the emergency room if symptoms are worsening or not improving as discussed. Patient agrees to ED plan of ca re. Discharged home and follow up with PCP in 2-3 days. ED Disposition Clinical Impression: Abscess of scalp, Acute folliculitis, Tinea capitis Disposition: TO HOME OR SELFCARE Is pt being admited?: No Does the pt Need Aspirin: No Condition: Stable Instructions: Tinea Capitis (ED), Folliculitis (ED) Additional Instructions: Complete full course of antibiotics as prescribed. Follow up with a primary care doctor or urgent care in 2-3 days to reassess the wound. Take pain medication every 6-8 hours as needed for pain. Return to ER if foul smelling discharge, swelling, or severe pain to wound. Prescriptions: Clindamycin [Clindamycin CAP] 300 mg PO Q6H 10 Days #40 capsule Ketoconazole [Ketoconazole shampoo] 120 ml TP 3XW #1 shampoo Referrals: TIM PEREIRA MD [Primary Care Provider] - 3-5 Days [facility] [Provider Group] - 3-5 Days [facility] [Provider Group] - 3-5 Days [facility] [Outside] - 3-5 Days Time of Disposition: 19:40
[2018-12-28 21:48] VITALS: BP 134/87
== END 2018-12-28 21:49 | disposition home or self-care (01) ==
LOC: ED 16:18
DX: L02.811 Cutaneous abscess of head [any part, except face] (principal); L73.9 Follicular disorder, unspecified; B35.0 Tinea barbae and tinea capitis; E11.9 Type 2 diabetes mellitus without complications; Z90.710 Acquired absence of both cervix and uterus
CPT/HCPCS: 99282

== ENCOUNTER 2019-11-08 14:56 | Inpatient (IN) | payer MEDICAID, MEDICARE ==
[2019-11-08 15:40] LABS: Basophils # (Auto) 0.1 K/mm3 (0.0-0.1); Basophils % (Auto) 0.9 % (0.0-1.8); Eosinophils # (Auto) 0.1 K/mm3 (0.0-0.4); Eosinophils % (Auto) 0.9 % (0.0-4.3); Hematocrit 35.9 % (30.3-42.9); Hemoglobin 11.8 gm/dl (10.1-14.3); Lymphocytes # (Auto) 2.3 K/mm3 (1.2-5.4); Lymphocytes % (Auto) 30.1 % (13.4-35.0); Mean Corpuscular HGB Conc 33 % (30-34); Mean Corpuscular Volume 75 fl (79-97); Monocytes # (Auto) 0.4 K/mm3 (0.0-0.8); Monocytes % (Auto) 5.8 % (0.0-7.3); Platelet Count 255 K/mm3 (140-440); Red Cell Distribution Width 14.1 % (13.2-15.2)
--- NOTE | 2019-11-08 16:00 | Emergency Department Report ---
ED Neuro Deficit HPI - General Chief Complaint: Neuro Symptoms/Deficit Stated Complaint: ALTERED MENTAL STATUS Time Seen by Provider: 11/08/19 15:27 Source: patient, family, EMS Mode of arrival: Stretcher Limitations: Altered Mental Status - History of Present Illness Initial Comments: [facility] Date of Service: 11/08/2019 15:31:35 Impression: Rule Out Acute Ischemic Stroke Stroke unlikely but must rule out other vascular apathy including aneurysm. She is afebrile but must consider central nervous system infection. Comments/Sign-Out: Her symptoms sound more systemic than purely neurologic. Her NIH score was zero and she was simply slow to answer questions. Suggest CTA head and neck, and if negative diagnostic lumbar puncture. General but metabolic workup as well. Need to know her blood sugar not yet available. Mechanism of Stroke: Not Clear Metrics: Last Known Well: 11/08/2019 05:30:00 [facility] Notification Time: 11/08/2019 15:31:09 Arrival Time: 11/08/2019 14:56:00 Stamp Time: 11/08/2019 15:31:35 Time First Login Attempt: 11/08/2019 15:35:43 Video Start Time: 11/08/2019 15:35:43 Symptoms: confusion NIHSS Start Assessment Time: 11/08/2019 15:40:00 Patient is not a candidate for tPA. Patient was not deemed candidate for tPA thrombolytics because of Resolved symptoms (no residual disabling symptoms). Video End Time: 11/08/2019 15:52:05 CT head showed no acute hemorrhage or acute core infarct. CT head was reviewed and results were: No evidence of acute ischemic change, hemorrhage, or mass lesion. Lower Likelihood of Large Vessel Occlusion but Following Stat Studies are Recommended CTA Head and Neck. Radiologist was not called back for review of advanced imaging because Not yet completed. Intervention doubtful but looking for other sources of the headache nausea and vomiting. ED Physician notified of diagnostic impression and management plan on 11/08/2019 15:51:00 Our recommendations are outlined below. Recommendations: Activate Stroke Protocol Admission/Order Set Stroke/Telemetry Floor Neuro Checks Bedside Swallow Eval DVT Prophylaxis IV Fluids, Normal Saline Head of Bed Below 30 Degrees Euglycemia and Avoid Hyperthermia (PRN Acetaminophen) Hold Antithrombotics for Now Routine Consultation with Inhouse Neurology for Follow up Care Sign Out: Discussed with Emergency Department Provider History of Present Illness: Patient is a 49 year old Female. Patient was brought by EMS for symptoms of confusion This 49-year-old woman was well until 0530 this morning when she developed a headache, nausea, vomiting, confusion and slurred speech. She has a history of hypertension and diabetes. She has no heart disease, hyperlipidemia CT head showed no acute hemorrhage or acute core infarct. CT head was reviewed. Last seen normal was beyond 4.5 hours of presentation. There is no history of hemorrhagic complications or intracranial hemorrhage. There is no history of Recent Anticoagulants. There is no history of recent major surgery. There is no history of recent stroke. Examination: BP(120/84), Pulse(113, sinus tachycardia), Blood Glucose(Unavailable) 1A: Level of Consciousness - Alert; keenly responsive + 0 1B: Ask Month and Age - Both Questions Right + 0 1C: Blink Eyes & Squeeze Hands - Performs Both Tasks + 0 2: Test Horizontal Extraocular Movements - Normal + 0 3: Test Visual Mora - No Visual Loss + 0 4: Test Facial Palsy (Use Grimace if Obtunded) - Normal symmetry + 0 5A: Test Left Arm Motor Drift - No Drift for 10 Seconds + 0 5B: Test Right Arm Motor Drift - No Drift for 10 Seconds + 0 6A: Test Left Leg Motor Drift - No Drift for 5 Seconds + 0 6B: Test Right Leg Motor Drift - No Drift for 5 Seconds + 0 7: Test Limb Ataxia (FNF/Heel-Evans) - No Ataxia + 0 8: Test Sensation - Normal; No sensory loss + 0 9: Test Language/Aphasia - Normal; No aphasia + 0 10: Test Dysarthria - Normal + 0 11: Test Extinction/Inattention - No abnormality + 0 NIHSS Score: 0 Patient was informed the Neurology Consult would happen via TeleHealth consult by way of interactive audio and video telecommunications and consented to receiving care in this manner. Due to the immediate potential for life-threatening deterioration due to underlying acute neurologic illness, I spent 35 minutes providing critical care. This time includes time for face to face visit via telemedicine, review of medical records, imaging studies and discussion of findings with providers, the patient and/or family. Dr Josiah [facility] Case [id number] -: Sudden Time: 05:30 Last Observed Normal: 05:30 Location: speech, altered Place: home - Related Data Home Medications: Home Medications Medication Instructions Recorded Confirmed Last Taken Insulin Detemir (Nf) [Levemir 32 unit SQ QHS 08/09/15 08/09/15 1 Day Ago Flextouch] ~08/08/15 Previous Rx's Medication Instructions Recorded Last Taken Type diazePAM TAB [Valium] 5 mg PO TID PRN #12 tablet 08/10/15 Unknown Rx Albuterol INH(or & Nicu Only) 2 puff IH QID PRN #1 inhalation 09/13/15 Unknown Rx [ProAir HFA Inhaler] Amoxicillin [Amoxicillin TAB] 875 mg PO BID #14 tablet 09/13/15 Unknown Rx Benzonatate [Tessalon Perles] 100 mg PO Q8HR #20 capsule 09/13/15 Unknown Rx Prednisone [predniSONE 5 mg (6-Day 5 mg PO .TAPER #1 tab.ds.pk 09/13/15 Unknown Rx Pack, 21 Tabs)] Albuterol INH(or & Nicu Only) 2 puff IH QID PRN #1 inhalation 09/15/17 Unknown Rx [ProAir HFA Inhaler] Azithromycin [Zithromax Z-BRENNAN] 250 mg PO DAILY #6 tablet 09/15/17 Unknown Rx Benzonatate [Tessalon Perle] 100 mg PO Q8H PRN #30 capsule 09/15/17 Unknown Rx Nystas/Diphen/Xyl Visc/Mylanta 15 ml MM Q4H PRN 10 Days ml 09/15/17 Unknown Rx [Magic Mouthwash] Prednisone [predniSONE 10 mg 10 mg PO .TAPER #1 tab.ds.pk 09/15/17 Unknown Rx (6-Day Pack, 21 Tabs)] Acetaminophen/Codeine [Tylenol 1 tab PO Q6H PRN #12 tab 04/20/18 Unknown Rx /Codeine # 3 tab] Benzonatate [Tessalon Perle] 100 mg PO Q6H PRN #20 capsule 04/20/18 Unknown Rx Prednisone [predniSONE 10 mg 10 mg PO .TAPER #1 tab.ds.pk 04/20/18 Unknown Rx (6-Day Pack, 21 Tabs)] Acetaminophen/Codeine [Tylenol 1 tab PO Q6H PRN #12 tab 11/15/18 Unknown Rx /Codeine # 3 tab] cephALEXin [Keflex] 500 mg PO Q8HR 10 Days #30 cap 11/15/18 Unknown Rx Clindamycin [Clindamycin CAP] 300 mg PO Q6H 10 Days #40 capsule 12/28/18 Unknown Rx Ketoconazole [Ketoconazole shampoo] 120 ml TP 3XW #1 shampoo 12/28/18 Unknown Rx Allergies/Adverse Reactions: Allergies Allergy/AdvReac Type Severity Reaction Status Date / Time No Known Allergies Allergy Verified 12/28/18 16:24 ED Review of Systems ROS: Stated complaint: ALTERED MENTAL STATUS Other details as noted in HPI ED Past Medical Hx - Past Medical History Hx Hypertension: Yes Hx Diabetes: Yes - Surgical History Additional Surgical History: hysterectomy - Social History Smoking Status: Never Smoker Substance Use Type: None - Medications Home Medications: Home Medications Medication Instructions Recorded Confirmed Last Taken Type Insulin Detemir (Nf) [Levemir 32 unit SQ QHS 08/09/15 08/09/15 1 Day Ago History Flextouch] ~08/08/15 diazePAM TAB [Valium] 5 mg PO TID PRN #12 tablet 08/10/15 Unknown Rx Albuterol INH(or & Nicu Only) 2 puff IH QID PRN #1 inhalation 09/13/15 Unknown Rx [ProAir HFA Inhaler] Amoxicillin [Amoxicillin TAB] 875 mg PO BID #14 tablet 09/13/15 Unknown Rx Benzonatate [Tessalon Perles] 100 mg PO Q8HR #20 capsule 09/13/15 Unknown Rx Prednisone [predniSONE 5 mg (6-Day 5 mg PO .TAPER #1 tab.ds.pk 09/13/15 Unknown Rx Pack, 21 Tabs)] Albuterol INH(or & Nicu Only) 2 puff IH QID PRN #1 inhalation 09/15/17 Unknown Rx [ProAir HFA Inhaler] Azithromycin [Zithromax Z-BRENNAN] 250 mg PO DAILY #6 tablet 09/15/17 Unknown Rx Benzonatate [Tessalon Perle] 100 mg PO Q8H PRN #30 capsule 09/15/17 Unknown Rx Nystas/Diphen/Xyl Visc/Mylanta 15 ml MM Q4H PRN 10 Days ml 09/15/17 Unknown Rx [Magic Mouthwash] Prednisone [predniSONE 10 mg 10 mg PO .TAPER #1 tab.ds.pk 09/15/17 Unknown Rx (6-Day Pack, 21 Tabs)] Acetaminophen/Codeine [Tylenol 1 tab PO Q6H PRN #12 tab 04/20/18 Unknown Rx /Codeine # 3 tab] Benzonatate [Tessalon Perle] 100 mg PO Q6H PRN #20 capsule 04/20/18 Unknown Rx Prednisone [predniSONE 10 mg 10 mg PO .TAPER #1 tab.ds.pk 04/20/18 Unknown Rx (6-Day Pack, 21 Tabs)] Acetaminophen/Codeine [Tylenol 1 tab PO Q6H PRN #12 tab 11/15/18 Unknown Rx /Codeine # 3 tab] cephALEXin [Keflex] 500 mg PO Q8HR 10 Days #30 cap 11/15/18 Unknown Rx Clindamycin [Clindamycin CAP] 300 mg PO Q6H 10 Days #40 capsule 12/28/18 Unknown Rx Ketoconazole [Ketoconazole shampoo] 120 ml TP 3XW #1 shampoo 12/28/18 Unknown Rx ED Neuro Physical Exam - General Limitations: Altered Mental Status Suspected Stroke: No ED Course Vital Signs 11/08/19 11/08/19 11/08/19 15:15 15:19 15:45 Temperature 98.4 F Pulse Rate 109 H 120 H 121 H Respiratory 15 18 15 Rate Blood Pressure 141/97 135/95 118/86 O2 Sat by Pulse 99 99 100 Oximetry 11/08/19 15:54 Temperature Pulse Rate 112 H Respiratory Rate Blood Pressure O2 Sat by Pulse Oximetry - Lab Data Result diagrams: 11/08/19 Unknown Lab Results 11/08/19 Range/Units Unknown WBC 7.8 (4.5-11.0) K/mm3 RBC 4.80 (3.65-5.03) M/mm3 Hgb 11.8 (10.1-14.3) gm/dl Hct 35.9 (30.3-42.9) % MCV 75 L (79-97) fl MCH 25 L (28-32) pg MCHC 33 (30-34) % RDW 14.1 (13.2-15.2) % Plt Count 255 (140-440) K/mm3 Lymph % (Auto) 30.1 (13.4-35.0) % Floyd % (Auto) 5.8 (0.0-7.3) % Eos % (Auto) 0.9 (0.0-4.3) % Baso % (Auto) 0.9 (0.0-1.8) % Lymph # 2.3 (1.2-5.4) K/mm3 Floyd # 0.4 (0.0-0.8) K/mm3 Eos # 0.1 (0.0-0.4) K/mm3 Baso # 0.1 (0.0-0.1) K/mm3 Seg Neutrophils % 62.3 (40.0-70.0) % Seg Neutrophils # 4.8 (1.8-7.7) K/mm3 Critical care attestation.: If time is entered above; I have spent that time in minutes in the direct care of this critically ill patient, excluding procedure time. ED Disposition Clinical Impression: Encephalopathy acute Disposition: DC-09 OP ADMIT IP TO THIS HOSP Is pt being admited?: Yes Does the pt Need Aspirin: No Condition: Good Referrals: PRIMARY CARE, [Primary Care Provider] - 3-5 Days
[2019-11-08 16:01] LABS: BUN/Creatinine Ratio 12; Blood Urea Nitrogen 7 mg/dL (7-17); Hemolysis Index 20
[2019-11-08 16:02] LABS: Alanine Aminotransferase 6 units/L (7-56); Albumin 3.5 g/dL (3.9-5)
--- NOTE | 2019-11-08 16:07 | Cat Scan Report ---
CT BRAIN: 11/08/2019 INDICATION / CLINICAL INFORMATION: Altered mental status. COMPARISON: 10/26/2009 FINDINGS: BRAIN/INTRACRANIAL STRUCTURES: Unenhanced CT images of the brain were obtained and compared to a prio r exam from 10/26/2009. There is no definite evidence of acute abnormality. However, there has been an interval relative incr ease in the size of the lateral and third ventricles, in a pattern that may be an indication of mild or early underlying hydrocephalus. This was not present on the prior exam. Correlation with details o f clinical circumstances would be recommended to further evaluate for the possibility of hydrocephalu s. The brain parenchyma demonstrates no evidence of abnormality. There is no evidence of acute ischemic injury, hemorrhage, or mass. There are no abnormal extra-axial fluid collections. EXTRACRANIAL STRUCTURES: Unremarkable. IMPRESSION: 1. No evidence of acute ischemic injury or hemorrhage. 2. Mild ventriculomegaly, as discussed above. These findings were discussed with Dr. Johnston in the emergency department at 1502 hours (CT) All CT scans at this location are performed using dose reduction to ALARA by means of automated expos ure control. Signer Name: Tony Dolan MD Signed: 11/08/2019 4:02 PM Workstation Name: [email or web address]
[2019-11-08 16:09] LABS: Bilirubin,Direct < 0.2 mg/dL (0-0.2); Creatine Kinase MB < 1.0 ng/mL (0.0-4.0)
--- NOTE | 2019-11-08 16:15 | XRay Report ---
CHEST 1 VIEW 11/08/2019 3:45 PM INDICATION / CLINICAL INFORMATION: htn. COMPARISON: Chest x-ray 04/20/2018 FINDINGS: SUPPORT DEVICES: None. HEART / MEDIASTINUM: No significant abnormality. LUNGS / PLEURA: No significant pulmonary or pleural abnormality. No pneumothorax. ADDITIONAL FINDINGS: No significant additional findings. IMPRESSION: 1. No acute findings. Signer Name: Sergei Lamar MD Signed: 11/08/2019 4:11 PM Workstation Name: [email or web address]
[2019-11-08 16:27] LABS: INR 1.03 (0.87-1.13)
[2019-11-08 16:29] LABS: Thrombin Time 15.5 Sec. (15.1-19.6)
--- NOTE | 2019-11-08 16:52 | Cat Scan Report ---
NECK ANGIOGRAM 11/08/2019 HISTORY: Right-sided weakness. Confusion. FINDINGS: Contrast-enhanced CT angiographic images of the neck were obtained. In addition to the axia l images, sagittal and coronal reformatted images were obtained. In addition, 3 plane MIP reconstruct ions were produced. NASCET like criteria were used in this evaluation. There is a normal appearance to the carotid bifurcations and carotid arteries. Vertebral artery contours are unremarkable. Visualized portions of the aortic arch demonstrate no evidence of abnormality. Incidental note is made of a 1.6 cm right thyroid nodule. IMPRESSION: No evidence of significant vascular abnormality. INCIDENTAL THYROID NODULE RECOMMENDATIONS Nonpalpable nodules detected on US or other anatomic imaging studies are termed incidentally discover ed nodules or incidentalomas. Nonpalpable nodules have the same risk of malignancy as palpable nodule s with the same size. Generally, only nodules >1 cm should be evaluated, since they have a greater po tential to be clinically significant cancers. (NAFISA, 2009). Follow up for incidental thyroid nodules <1 cm is not recommended. In patients <35 years with an incidental thyroid nodule detected on CT, MRI, or extrathyroidal ultras ound, dedicated thyroid ultrasound is recommended if the nodule is 1 cm, has no suspicious imaging fe atures, and if the patient has normal life expectancy. In patients 35 years with an incidental thyroid nodule detected on CT, MRI, or extrathyroidal ultraso und, dedicated thyroid ultrasound is recommended if the nodule is 1.5 cm, has no suspicious imaging f eatures, and if the patient has normal life expectancy. All CT scans at this location are performed using dose reduction to ALARA by means of automated expos ure control. Signer Name: Tony Dolan MD Signed: 11/08/2019 4:48 PM Workstation Name: [id number]
--- NOTE | 2019-11-08 16:55 | Cat Scan Report ---
HEAD CT ANGIOGRAM 11/08/2019 HISTORY: Right-sided weakness FINDINGS: Contrast-enhanced CT angiographic images of the intracranial circulation were obtained. In addition to the axial images, sagittal and coronal reformatted images were obtained. In addition, 3 p farhana MIP reconstructions were produced. There is no evidence of acute abnormality. Vascular contours are unremarkable at the level of the skull base and kake of Perez. There is no evidence of vessel occlusion or stenosis. There is no evidence of malformation or aneurys m. IMPRESSION: No significant abnormality. All CT scans at this location are performed using dose reduction to ALARA by means of automated expos ure control. Signer Name: Tony Dolan MD Signed: 11/08/2019 4:51 PM Workstation Name: [id number]
[2019-11-08] MEDS ORDERED: SODIUM CHLORIDE 0.9% 1000 ML 1,000 ML IV ONE (17:10)
--- NOTE | 2019-11-08 17:16 | Emergency Department Report ---
ED Neuro Deficit HPI - General Chief Complaint: Neuro Symptoms/Deficit Stated Complaint: ALTERED MENTAL STATUS Time Seen by Provider: 11/08/19 15:27 Source: patient, family, EMS Mode of arrival: Stretcher Limitations: Altered Mental Status - History of Present Illness Initial Comments: This is a 49-year-old female who has been having headaches for 3 weeks. She describes them as largely bifrontal. She does not complain of neck pain. She states that for the last 5 days she has been vomiting intermittently. She is not nauseated at the time of my encounter. She denies diarrhea. She states that she felt some abdominal cramps once but does not complain of abdominal pain. 2 weeks ago she was seen by her primary care provider. She states that she received symptomatic treatment but no work-up was performed at that time. She denies chronic headaches. She has a history of insulin-dependent diabetes. Patient arrived with a variable history. The nurse initially told me that her symptoms began between 5 and 8 this morning. In actuality she has been having headaches for 3 weeks, as well as, intermittent nausea and vomiting. She denies fever. According to her she was confused this morning and "talking out of her head". The patient is coherent and oriented x4 during my encounter. However she does state she felt like she was confused this morning. She also complains of spinning. Apparently she has been having some vertigo. She does not report any geo visual change such as diplopia or field deficits. She does state that the headache is worse at night and that she feels her experiences the spinning when she stands up. The symptoms are new to her. Apparently the patient had a CT of the head 10 years ago here per radiologist which showed normal ventricles. Radiologist tells me that there is mild ventriculomegaly today which he believes is an interval change in unusual for her age. -: Gradual, week(s) Location: altered Presenting Symptoms: Present: Altered Mental Status History of same: No Place: home Severity: moderate Quality: other Improves With: none Worsens With: none On Anticoagulants: No Context: other (Worsening symptoms this morning) Associated Symptoms: headaches, nausea/vomiting, vertigo Treatments Prior to Arrival: none - Related Data Home Medications: Home Medications Medication Instructions Recorded Confirmed Last Taken Insulin Detemir (Nf) [Levemir 32 unit SQ QHS 08/09/15 08/09/15 1 Day Ago Flextouch] ~08/08/15 Previous Rx's Medication Instructions Recorded Last Taken Type diazePAM TAB [Valium] 5 mg PO TID PRN #12 tablet 08/10/15 Unknown Rx Albuterol INH(or & Nicu Only) 2 puff IH QID PRN #1 inhalation 09/13/15 Unknown Rx [ProAir HFA Inhaler] Amoxicillin [Amoxicillin TAB] 875 mg PO BID #14 tablet 09/13/15 Unknown Rx Benzonatate [Tessalon Perles] 100 mg PO Q8HR #20 capsule 09/13/15 Unknown Rx Prednisone [predniSONE 5 mg (6-Day 5 mg PO .TAPER #1 tab.ds.pk 09/13/15 Unknown Rx Pack, 21 Tabs)] Albuterol INH(or & Nicu Only) 2 puff IH QID PRN #1 inhalation 09/15/17 Unknown Rx [ProAir HFA Inhaler] Azithromycin [Zithromax Z-BRENNAN] 250 mg PO DAILY #6 tablet 09/15/17 Unknown Rx Benzonatate [Tessalon Perle] 100 mg PO Q8H PRN #30 capsule 09/15/17 Unknown Rx Nystas/Diphen/Xyl Visc/Mylanta 15 ml MM Q4H PRN 10 Days ml 09/15/17 Unknown Rx [Magic Mouthwash] Prednisone [predniSONE 10 mg 10 mg PO .TAPER #1 tab.ds.pk 09/15/17 Unknown Rx (6-Day Pack, 21 Tabs)] Acetaminophen/Codeine [Tylenol 1 tab PO Q6H PRN #12 tab 04/20/18 Unknown Rx /Codeine # 3 tab] Benzonatate [Tessalon Perle] 100 mg PO Q6H PRN #20 capsule 04/20/18 Unknown Rx Prednisone [predniSONE 10 mg 10 mg PO .TAPER #1 tab.ds.pk 04/20/18 Unknown Rx (6-Day Pack, 21 Tabs)] Acetaminophen/Codeine [Tylenol 1 tab PO Q6H PRN #12 tab 11/15/18 Unknown Rx /Codeine # 3 tab] cephALEXin [Keflex] 500 mg PO Q8HR 10 Days #30 cap 11/15/18 Unknown Rx Clindamycin [Clindamycin CAP] 300 mg PO Q6H 10 Days #40 capsule 12/28/18 Unknown Rx Ketoconazole [Ketoconazole shampoo] 120 ml TP 3XW #1 shampoo 12/28/18 Unknown Rx Allergies/Adverse Reactions: Allergies Allergy/AdvReac Type Severity Reaction Status Date / Time No Known Allergies Allergy Verified 12/28/18 16:24 ED Review of Systems ROS: Stated complaint: ALTERED MENTAL STATUS Other details as noted in HPI Constitutional: other (Confusion). denies: chills, fever Eyes: denies: eye pain, vision change ENT: denies: ear pain, throat pain Respiratory: denies: cough, shortness of breath, wheezing Cardiovascular: denies: chest pain, palpitations Endocrine: no symptoms reported Gastrointestinal: denies: abdominal pain, nausea, diarrhea Genitourinary: denies: urgency, dysuria, discharge Musculoskeletal: denies: back pain, joint swelling, arthralgia Skin: denies: rash, lesions Neurological: headache, vertigo. denies: weakness, paresthesias Psychiatric: denies: anxiety, depression Hematological/Lymphatic: denies: easy bleeding, easy bruising ED Past Medical Hx - Past Medical History Hx Hypertension: Yes Hx Diabetes: Yes - Surgical History Additional Surgical History: hysterectomy - Social History Smoking Status: Never Smoker Substance Use Type: None - Medications Home Medications: Home Medications Medication Instructions Recorded Confirmed Last Taken Type Insulin Detemir (Nf) [Levemir 32 unit SQ QHS 08/09/15 08/09/15 1 Day Ago History Flextouch] ~08/08/15 diazePAM TAB [Valium] 5 mg PO TID PRN #12 tablet 08/10/15 Unknown Rx Albuterol INH(or & Nicu Only) 2 puff IH QID PRN #1 inhalation 09/13/15 Unknown Rx [ProAir HFA Inhaler] Amoxicillin [Amoxicillin TAB] 875 mg PO BID #14 tablet 09/13/15 Unknown Rx Benzonatate [Tessalon Perles] 100 mg PO Q8HR #20 capsule 09/13/15 Unknown Rx Prednisone [predniSONE 5 mg (6-Day 5 mg PO .TAPER #1 tab.ds.pk 09/13/15 Unknown Rx Pack, 21 Tabs)] Albuterol INH(or & Nicu Only) 2 puff IH QID PRN #1 inhalation 09/15/17 Unknown Rx [ProAir HFA Inhaler] Azithromycin [Zithromax Z-BRENNAN] 250 mg PO DAILY #6 tablet 09/15/17 Unknown Rx Benzonatate [Tessalon Perle] 100 mg PO Q8H PRN #30 capsule 09/15/17 Unknown Rx Nystas/Diphen/Xyl Visc/Mylanta 15 ml MM Q4H PRN 10 Days ml 09/15/17 Unknown Rx [Magic Mouthwash] Prednisone [predniSONE 10 mg 10 mg PO .TAPER #1 tab.ds.pk 09/15/17 Unknown Rx (6-Day Pack, 21 Tabs)] Acetaminophen/Codeine [Tylenol 1 tab PO Q6H PRN #12 tab 04/20/18 Unknown Rx /Codeine # 3 tab] Benzonatate [Tessalon Perle] 100 mg PO Q6H PRN #20 capsule 04/20/18 Unknown Rx Prednisone [predniSONE 10 mg 10 mg PO .TAPER #1 tab.ds.pk 04/20/18 Unknown Rx (6-Day Pack, 21 Tabs)] Acetaminophen/Codeine [Tylenol 1 tab PO Q6H PRN #12 tab 11/15/18 Unknown Rx /Codeine # 3 tab] cephALEXin [Keflex] 500 mg PO Q8HR 10 Days #30 cap 11/15/18 Unknown Rx Clindamycin [Clindamycin CAP] 300 mg PO Q6H 10 Days #40 capsule 12/28/18 Unknown Rx Ketoconazole [Ketoconazole shampoo] 120 ml TP 3XW #1 shampoo 12/28/18 Unknown Rx ED Neuro Physical Exam - General Limitations: Physical Limitation General appearance: obese Suspected Stroke: No (Appears unlikely) - Head Head exam: Present: atraumatic, normocephalic - Eye Eye exam: Present: normal appearance. Absent: scleral icterus - ENT ENT exam: Present: mucous membranes moist - Neck Neck exam: Present: normal inspection. Absent: tenderness, meningismus - Respiratory Respiratory exam: Present: normal lung sounds bilaterally. Absent: respiratory distress - Cardiovascular Cardiovascular Exam: Present: regular rate, normal rhythm. Absent: systolic murmur, diastolic murmur, rubs, gallop - GI/Abdominal GI/Abdominal exam: Present: soft, normal bowel sounds. Absent: distended, tenderness, guarding, rebound, rigid - Extremities Exam Extremities exam: Present: normal inspection - Back Exam Back exam: Present: normal inspection - Neurological Exam Neurological exam: Present: alert, oriented X3, CN II-XII intact, other (Visual eagle were equal by confrontation cerebellar testing was normal). Absent: motor sensory deficit - NIHSS Assessment Interval: Baseline 1a. Level of Consciousness: alert/keenly responsive 1b. LOC Questions: answers both correctly 1c. LOC Commands: performs tasks correctly 2. Best Gaze: normal 3. Visual: no visual loss 4. Facial Palsy: normal symmetrical movement 5b. Motor Arm Right: no drift 5a. Motor Arm Left: no drift 6a. Motor Leg Left: no drift 6b. Motor Leg Right: no drift 7. Limb Ataxia: absent 8. Sensory: normal 9. Best Language: no aphasia 10. Dysarthria: normal 11. Extinction/Inattention: no abnormality Total Score: 0 Stroke Severity: No Stroke Symptoms - Psychiatric Psychiatric exam: Present: normal affect, normal mood - Skin Skin exam: Present: warm, dry, intact, normal color. Absent: rash ED Course Vital Signs 11/08/19 11/08/19 11/08/19 15:15 15:19 15:45 Temperature 98.4 F Pulse Rate 109 H 120 H 121 H Respiratory 15 18 15 Rate Blood Pressure 141/97 135/95 118/86 O2 Sat by Pulse 99 99 100 Oximetry 11/08/19 11/08/19 15:54 16:08 Temperature Pulse Rate 112 H Respiratory 16 Rate Blood Pressure O2 Sat by Pulse Oximetry - Reevaluation(s) Reevaluation #1: I spoke with the tele-neurologist. They did not read the CT as ventriculomegaly but they did not compared to prior. The tele-neurologist agreed [facility] I did recommend MR studies as well as CTA. Patient's headache did not require substantial medication when I examined her. She did complain of some vertigo. She will be given Antivert, Zofran and Tylenol. Serum and urine osmolality as well as a urine sodium is ordered. It would appear that the patient's hyponatremia is secondary to her vomiting. However SIADH could be a possibility as well. She is admitted by Dr. Landin to complete her work-up and to address her hyponatremia. 11/08/19 17:18 - Lab Data Result diagrams: 11/08/19 Unknown 11/08/19 Unknown Lab Results 11/08/19 11/08/19 11/08/19 Range/Units Unknown Unknown Unknown WBC 7.8 (4.5-11.0) K/mm3 RBC 4.80 (3.65-5.03) M/mm3 Hgb 11.8 (10.1-14.3) gm/dl Hct 35.9 (30.3-42.9) % MCV 75 L (79-97) fl MCH 25 L (28-32) pg MCHC 33 (30-34) % RDW 14.1 (13.2-15.2) % Plt Count 255 (140-440) K/mm3 Lymph % (Auto) 30.1 (13.4-35.0) % White % (Auto) 5.8 (0.0-7.3) % Eos % (Auto) 0.9 (0.0-4.3) % Baso % (Auto) 0.9 (0.0-1.8) % Lymph # 2.3 (1.2-5.4) K/mm3 White # 0.4 (0.0-0.8) K/mm3 Eos # 0.1 (0.0-0.4) K/mm3 Baso # 0.1 (0.0-0.1) K/mm3 Seg Neutrophils % 62.3 (40.0-70.0) % Seg Neutrophils # 4.8 (1.8-7.7) K/mm3 PT 13.6 (12.2-14.9) Sec. INR 1.03 (0.87-1.13) APTT 25.0 (24.2-36.6) Sec. Thrombin Time 15.5 (15.1-19.6) Sec. Sodium 129 L (137-145) mmol/L Potassium 4.8 (3.6-5.0) mmol/L Chloride 92.6 L (98-107) mmol/L Carbon Dioxide 27 (22-30) mmol/L Anion Gap 14 mmol/L BUN 7 (7-17) mg/dL Creatinine 0.6 L (0.7-1.2) mg/dL Estimated GFR > 60 ml/min BUN/Creatinine Ratio 12 % Glucose 215 H (65-100) mg/dL Calcium 10.0 (8.4-10.2) mg/dL Magnesium (1.7-2.3) mg/dL Total Bilirubin (0.1-1.2) mg/dL Direct Bilirubin (0-0.2) mg/dL Indirect Bilirubin mg/dL AST (5-40) units/L ALT (7-56) units/L Alkaline Phosphatase (35-129) units/L Total Creatine Kinase 32 (30-135) units/L CK-MB (CK-2) < 1.0 (0.0-4.0) ng/mL CK-MB (CK-2) Rel Index 3.1 (0-4) Troponin T < 0.010 (0.00-0.029) ng/mL NT-Pro-B Natriuret Pep (0-450) pg/mL Total Protein (6.3-8.2) g/dL Albumin (3.9-5) g/dL Albumin/Globulin Ratio % HCG, Qual (Negative) 11/08/19 11/08/19 Range/Units Unknown Unknown WBC (4.5-11.0) K/mm3 RBC (3.65-5.03) M/mm3 Hgb (10.1-14.3) gm/dl Hct (30.3-42.9) % MCV (79-97) fl MCH (28-32) pg MCHC (30-34) % RDW (13.2-15.2) % Plt Count (140-440) K/mm3 Lymph % (Auto) (13.4-35.0) % White % (Auto) (0.0-7.3) % Eos % (Auto) (0.0-4.3) % Baso % (Auto) (0.0-1.8) % Lymph # (1.2-5.4) K/mm3 White # (0.0-0.8) K/mm3 Eos # (0.0-0.4) K/mm3 Baso # (0.0-0.1) K/mm3 Seg Neutrophils % (40.0-70.0) % Seg Neutrophils # (1.8-7.7) K/mm3 PT (12.2-14.9) Sec. INR (0.87-1.13) APTT (24.2-36.6) Sec. Thrombin Time (15.1-19.6) Sec. Sodium (137-145) mmol/L Potassium (3.6-5.0) mmol/L Chloride (98-107) mmol/L Carbon Dioxide (22-30) mmol/L Anion Gap mmol/L BUN (7-17) mg/dL Creatinine (0.7-1.2) mg/dL Estimated GFR ml/min BUN/Creatinine Ratio % Glucose (65-100) mg/dL Calcium (8.4-10.2) mg/dL Magnesium 1.70 (1.7-2.3) mg/dL Total Bilirubin 0.40 (0.1-1.2) mg/dL Direct Bilirubin < 0.2 (0-0.2) mg/dL Indirect Bilirubin 0.2 mg/dL AST 6 (5-40) units/L ALT 6 L (7-56) units/L Alkaline Phosphatase 53 (35-129) units/L Total Creatine Kinase (30-135) units/L CK-MB (CK-2) (0.0-4.0) ng/mL CK-MB (CK-2) Rel Index (0-4) Troponin T (0.00-0.029) ng/mL NT-Pro-B Natriuret Pep 24.94 (0-450) pg/mL Total Protein 7.4 (6.3-8.2) g/dL Albumin 3.5 L (3.9-5) g/dL Albumin/Globulin Ratio 0.9 % HCG, Qual Negative (Negative) - EKG Data -: EKG Interpreted by Pa EKG shows normal: sinus rhythm, axis, intervals, QRS complexes, ST-T waves Rate: normal Interpretation: nonspecific ST-T wave stacey - Radiology Data Radiology results: report reviewed (Ventriculomegaly, interval change, CTA is no acute intracranial process. Chest x-ray no acute process.) Critical Care Time: Yes Critical care time in (mins) excluding proc time.: 60 Critical care attestation.: If time is entered above; I have spent that time in minutes in the direct care of this critically ill patient, excluding procedure time. ED Disposition Clinical Impression: Encephalopathy acute, Hyponatremia Disposition: OP ADMIT IP TO THIS HOSP Is pt being admited?: Yes Does the pt Need Aspirin: Yes Condition: Good Referrals: PRIMARY CARE, [Primary Care Provider] - 3-5 Days Time of Disposition: 17:23
[2019-11-08] MEDS ORDERED: ACETAMINOPHEN 325 MG/10.15 ML ORAL LIQD UNIT DOSE PO ONE (17:25)
[2019-11-08] MEDS ORDERED: ONDANSETRON 4 MG ODT TAB PO ONE (17:25)
[2019-11-08] MEDS ORDERED: MECLIZINE 25 MG TAB PO ONE (17:25)
[2019-11-08] MEDS ORDERED: ASPIRIN 325 MG TAB ONE (17:54)
[2019-11-08] MEDS ORDERED: ACETAMINOPHEN 325 MG/10.15 ML ORAL LIQD UNIT DOSE ONE (17:54)
[2019-11-08] MEDS ORDERED: SODIUM CHLORIDE 0.9% 1000 ML 1,000 ML ONE (17:54)
[2019-11-08] MEDS ORDERED: ONDANSETRON 4 MG ODT TAB ONE (17:54)
[2019-11-08] MEDS ORDERED: MECLIZINE 25 MG TAB ONE (17:54)
[2019-11-08] MEDS: ASPIRIN 325 MG TAB PO SCH (18:02)
[2019-11-08 18:05] LABS: Bilirubin,Urine Negative (Negative); Blood,Urine Negative (Negative); Color,Urine Straw (Yellow)
[2019-11-08 18:06] LABS: Mucus,Urine Few /HPF; Protein,Urine <15 mg/dL mg/dL (Negative); Urobilinogen,Urine < 2.0 mg/dL (<2.0)
[2019-11-08 18:23] LABS: Osmolality,Urine 302 Mosm/kg
--- NOTE | 2019-11-08 22:30 | History and Physical Report ---
History of Present Illness Date of examination: 11/08/19 Date of admission: 11/08/19 17:28 Chief complaint: Conner 3 weeks Vomiting for5 days History of present illness: 49-year-old presents with headaches for 3 weeks. She describes them as largely bifrontal. Also vomiting for 5 days intermittently.Some epigastric discomfort. No fever or chills.Was altered sensorium this am but has normaised over the day - Past Medical History Hx Hypertension: Yes Hx Diabetes: Yes - Surgical History Additional Surgical History: hysterectomy - Social History Smoking Status: Never Smoker Substance Use Type: None Family Hx Htn - Medications Home Medications: Home Medications Medication Instructions Recorded Confirmed Last Taken Type Insulin Detemir (Nf) [Levemir 32 unit SQ QHS 08/09/15 08/09/15 1 Day Ago History Flextouch] ~08/08/15 diazePAM TAB [Valium] 5 mg PO TID PRN #12 tablet 08/10/15 Unknown Rx Albuterol INH(or & Nicu Only) 2 puff IH QID PRN #1 inhalation 09/13/15 Unknown Rx [ProAir HFA Inhaler] Amoxicillin [Amoxicillin TAB] 875 mg PO BID #14 tablet 09/13/15 Unknown Rx Benzonatate [Tessalon Perles] 100 mg PO Q8HR #20 capsule 09/13/15 Unknown Rx Prednisone [predniSONE 5 mg (6-Day 5 mg PO .TAPER #1 tab.ds.pk 09/13/15 Unknown Rx Pack, 21 Tabs)] Albuterol INH(or & Nicu Only) 2 puff IH QID PRN #1 inhalation 09/15/17 Unknown Rx [ProAir HFA Inhaler] Azithromycin [Zithromax Z-BRENNAN] 250 mg PO DAILY #6 tablet 09/15/17 Unknown Rx Benzonatate [Tessalon Perle] 100 mg PO Q8H PRN #30 capsule 09/15/17 Unknown Rx Nystas/Diphen/Xyl Visc/Mylanta 15 ml MM Q4H PRN 10 Days ml 09/15/17 Unknown Rx [Magic Mouthwash] Prednisone [predniSONE 10 mg 10 mg PO .TAPER #1 tab.ds.pk 09/15/17 Unknown Rx (6-Day Pack, 21 Tabs)] Acetaminophen/Codeine [Tylenol 1 tab PO Q6H PRN #12 tab 04/20/18 Unknown Rx /Codeine # 3 tab] Benzonatate [Tessalon Perle] 100 mg PO Q6H PRN #20 capsule 04/20/18 Unknown Rx Prednisone [predniSONE 10 mg 10 mg PO .TAPER #1 tab.ds.pk 04/20/18 Unknown Rx (6-Day Pack, 21 Tabs)] Acetaminophen/Codeine [Tylenol 1 tab PO Q6H PRN #12 tab 11/15/18 Unknown Rx /Codeine # 3 tab] cephALEXin [Keflex] 500 mg PO Q8HR 10 Days #30 cap 11/15/18 Unknown Rx Clindamycin [Clindamycin CAP] 300 mg PO Q6H 10 Days #40 capsule 12/28/18 Unk nown Rx Ketoconazole [Ketoconazole shampoo] 120 ml TP 3XW #1 shampoo 12/28/18 Unknown Rx Review of Systems ROS: Stated complaint: ALTERED MENTAL STATUS Other details as noted in HPI Constitutional: other (Confusion). denies: chills, fever Eyes: denies: eye pain, vision change ENT: denies: ear pain, throat pain Respiratory: denies: cough, shortness of breath, wheezing Cardiovascular: denies: chest pain, palpitations Endocrine: no symptoms reported Gastrointestinal: denies: abdominal pain, nausea, diarrhea Genitourinary: denies: urgency, dysuria, discharge Musculoskeletal: denies: back pain, joint swelling, arthralgia Skin: denies: rash, lesions Neurological: headache, vertigo. denies: weakness, paresthesias Psychiatric: denies: anxiety, depression Hematological/Lymphatic: denies: easy bleeding, easy bruising Medications and Allergies Allergies Allergy/AdvReac Type Severity Reaction Status Date / Time No Known Allergies Allergy Verified 12/28/18 16:24 Home Medications Medication Instructions Recorded Confirmed Last Taken Type Insulin Glargine,Hum.rec.anlog 60 unit SQ BID 11/09/19 11/09/19 11/08/19 History [Basaglar Kwikpen U-100] Insulin Regular, Human [Novolin R] 16 units SQ QAC 11/09/19 11/09/19 11/08/19 History lisinopriL [Zestril TAB] 10 mg PO QDAY 11/09/19 11/09/19 11/07/19 History Active Meds: Active Medications Aspirin (Aspirin) 325 mg PO QDAY [facility] Last Admin: 11/08/19 18:02 Dose: 325 mg Documented by: Exam - Constitutional Vitals: Temp Pulse Resp BP Pulse Ox 98.2 F 90 21 107/79 99 11/08/19 18:11 11/08/19 19:45 11/08/19 18:31 11/08/19 19:45 11/08/19 19:45 General appearance: Present: no acute distress, well-nourished - EENT Eyes: Present: PERRL ENT: hearing intact, clear oral mucosa - Neck Neck: Present: supple, normal ROM - Respiratory Respiratory effort: normal Respiratory: bilateral: CTA - Cardiovascular Heart rate: 78 Rhythm: regular Heart Sounds: Present: S1 & S2. Absent: rub, click - Extremities Extremities: no ischemia, pulses intact, pulses symmetrical, No edema Peripheral Pulses: within normal limits - Abdominal General gastrointestinal: Present: soft, non-tender, non-distended, normal bowel sounds Female genitourinary: Present: normal - Rectal Rectal Exam: deferred - Integumentary Integumentary: Present: clear, warm, dry - Musculoskeletal Musculoskeletal: gait normal, strength equal bilaterally - Psychiatric Psychiatric: appropriate mood/affect, intact judgment & insight - Neurologic Neurologic: CNII-XII intact, moves all extremities - Allied Health Allied health notes reviewed: nursing, case management TARA score - Tara Score Age > 65: (0) No Aspirin use within the Past 7 Days: (0) No 3 or more CAD Risk Factors: (1) Yes 2 or more Angina events in past 24 hrs: (0) No Known CAD with more than 50% Stenosis: (0) No Elevated Cardiac Markers: (0) No ST Deviation Greater than 0.5mm: (0) No TARA Score: 1 Results - Labs CBC & Chem 7: 11/09/19 04:20 11/09/19 04:20 Labs: Laboratory Last Values WBC 7.8 K/mm3 (4.5-11.0) 11/08/19 Unknown RBC 4.80 M/mm3 (3.65-5.03) 11/08/19 Unknown Hgb 11.8 gm/dl (10.1-14.3) 11/08/19 Unknown Hct 35.9 % (30.3-42.9) 11/08/19 Unknown MCV 75 fl (79-97) L 11/08/19 Unknown MCH 25 pg (28-32) L 11/08/19 Unknown MCHC 33 % (30-34) 11/08/19 Unknown RDW 14.1 % (13.2-15.2) 11/08/19 Unknown Plt Count 255 K/mm3 (140-440) 11/08/19 Unknown Lymph % (Auto) 30.1 % (13.4-35.0) 11/08/19 Unknown [place] % (Auto) 5.8 % (0.0-7.3) 11/08/19 Unknown Eos % (Auto) 0.9 % (0.0-4.3) 11/08/19 Unknown Baso % (Auto) 0.9 % (0.0-1.8) 11/08/19 Unknown Lymph # 2.3 K/mm3 (1.2-5.4) 11/08/19 Unknown [place] # 0.4 K/mm3 (0.0-0.8) 11/08/19 Unknown Eos # 0.1 K/mm3 (0.0-0.4) 11/08/19 Unknown Baso # 0.1 K/mm3 (0.0-0.1) 11/08/19 Unknown Seg Neutrophils % 62.3 % (40.0-70.0) 11/08/19 Unknown Seg Neutrophils # 4.8 K/mm3 (1.8-7.7) 11/08/19 Unknown PT 13.6 Sec. (12.2-14.9) 11/08/19 Unknown INR 1.03 (0.87-1.13) 11/08/19 Unknown APTT 25.0 Sec. (24.2-36.6) 11/08/19 Unknown Thrombin Time 15.5 Sec. (15.1-19.6) 11/08/19 Unknown Sodium 129 mmol/L (137-145) L 11/08/19 Unknown Potassium 4.8 mmol/L (3.6-5.0) 11/08/19 Unknown Chloride 92.6 mmol/L (98-107) L 11/08/19 Unknown Carbon Dioxide 27 mmol/L (22-30) 11/08/19 Unknown Anion Gap 14 mmol/L 11/08/19 Unknown BUN 7 mg/dL (7-17) 11/08/19 Unknown Creatinine 0.6 mg/dL (0.7-1.2) L 11/08/19 Unknown Estimated GFR > 60 ml/min 11/08/19 Unknown BUN/Creatinine Ratio 12 % 11/08/19 Unknown Glucose 215 mg/dL (65-100) H 11/08/19 Unknown Osmolality 276 Mosm/kg 11/08/19 Unknown Calcium 10.0 mg/dL (8.4-10.2) 11/08/19 Unknown Magnesium 1.70 mg/dL (1.7-2.3) 11/08/19 Unknown Total Bilirubin 0.40 mg/dL (0.1-1.2) 11/08/19 Unknown Direct Bilirubin < 0.2 mg/dL (0-0.2) 11/08/19 Unknown Indirect Bilirubin 0.2 mg/dL 11/08/19 Unknown AST 6 units/L (5-40) 11/08/19 Unknown ALT 6 units/L (7-56) L 11/08/19 Unknown Alkaline Phosphatase 53 units/L (35-129) 11/08/19 Unknown Total Creatine Kinase 32 units/L (30-135) 11/08/19 Unknown CK-MB (CK-2) < 1.0 ng/mL (0.0-4.0) 11/08/19 Unknown CK-MB (CK-2) Rel Index 3.1 (0-4) 11/08/19 Unknown Troponin T < 0.010 ng/mL (0.00-0.029) 11/08/19 Unknown NT-Pro-B Natriuret Pep 24.94 pg/mL (0-450) 11/08/19 Unknown Total Protein 7.4 g/dL (6.3-8.2) 11/08/19 Unknown Albumin 3.5 g/dL (3.9-5) L 11/08/19 Unknown Albumin/Globulin Ratio 0.9 % 11/08/19 Unknown HCG, Qual Negative (Negative) 11/08/19 Unknown Urine Color Straw (Yellow) 11/08/19 Unknown Urine Turbidity Clear (Clear) 11/08/19 Unknown Urine pH 7.0 (5.0-7.0) 11/08/19 Unknown Ur Specific [place] 1.027 (1.003-1.030) 11/08/19 Unknown Urine Protein <15 mg/dl mg/dL (Negative) 11/08/19 Unknown Urine Glucose (UA) 50 mg/dL (Negative) 11/08/19 Unknown Urine Ketones Negative mg/dL (Negative) 11/08/19 Unknown Urine Blood Negative (Negative) 11/08/19 Unknown Urine Nitrite Negative (Negative) 11/08/19 Unknown Urine Bilirubin Negative (Negative) 11/08/19 Unknown Urine Urobilinogen < 2.0 mg/dL (<2.0) 11/08/19 Unknown Ur Leukocyte Esterase Tr (Negative) 11/08/19 Unknown Urine WBC (Auto) 1.0 /HPF (0.0-6.0) 11/08/19 Unknown Urine RBC (Auto) 1.0 /HPF (0.0-6.0) 11/08/19 Unknown U Epithel Cells (Auto) 1.0 /HPF (0-13.0) 11/08/19 Unknown Urine Mucus Few /HPF 11/08/19 Unknown Urine Osmolality 302 Mosm/kg 11/08/19 Unknown Urine Sodium 78 mmol/L 11/08/19 Unknown - Imaging and Cardiology Imaging and Cardiology: Head CT IMPRESSION: 1. No evidence of acute ischemic injury or hemorrhage. 2. Mild ventriculomegaly, as discussed above. Assessment and Plan Advance Directives: Yes ([place] code) VTE prophylaxis?: Chemical Plan of care discussed with patient/family: Yes - Patient Problems (1) Hyponatremia Current Visit: Yes Status: Acute Plan to address problem: IV Ns for now Serum osmolarity sent SSec to Vomiting (2) Diabetes mellitus type 2, insulin dependent Current Visit: Yes Status: Chronic Plan to address problem: Cont home insulin and coverage (3) HTN (hypertension) Current Visit: No Status: Chronic Qualifiers: Hypertension type: essential hypertension Qualified Code(s): I10 - Essential (primary) hypertension Plan to address problem: Cont anti hypertensives (4) DVT prophylaxis Current Visit: No Status: Acute Plan to address problem: On Heparin and GI prophylaxis
[2019-11-08] MEDS ORDERED: ACETAMINOPHEN 325 MG TAB PO PRN (22:31)
[2019-11-08] MEDS ORDERED: ONDANSETRON 4 MG/2 ML INJ IV PRN (22:31)
[2019-11-08] MEDS ORDERED: HYDROmorphone 1 MG/1 ML INJ IV PRN (22:31)
[2019-11-08] MEDS ORDERED: oxyCODONE /ACETAMINOPHEN 5-325MG TAB PO PRN (22:31)
[2019-11-08] MEDS ORDERED: ALBUTEROL 8.5 GM INHALATION IH PRN (22:33)
[2019-11-08] MEDS ORDERED: ALBUTEROL 2.5 MG/3 ML NEBU IH PRN (22:38)
[2019-11-08] MEDS: FAMOTIDINE 20 MG/2 ML INJ IV SCH (23:53)
[2019-11-08] MEDS: SODIUM CHLORIDE 0.9% 1000 ML 1,000 ML IV SCH (23:54)
[2019-11-09 05:32] LABS: Basophils % (Auto) 0.5 % (0.0-1.8); Eosinophils # (Auto) 0.1 K/mm3 (0.0-0.4); Eosinophils % (Auto) 1.6 % (0.0-4.3); Hematocrit 36.1 % (30.3-42.9); Hemoglobin 11.9 gm/dl (10.1-14.3); Lymphocytes # (Auto) 1.8 K/mm3 (1.2-5.4); Lymphocytes % (Auto) 22.7 % (13.4-35.0); Mean Corpuscular HGB Conc 33 % (30-34); Mean Corpuscular Volume 76 fl (79-97); Monocytes # (Auto) 0.4 K/mm3 (0.0-0.8); Monocytes % (Auto) 5.1 % (0.0-7.3); Platelet Count 251 K/mm3 (140-440); Red Blood Count 4.78 M/mm3 (3.65-5.03); Red Cell Distribution Width 14.3 % (13.2-15.2)
[2019-11-09 06:00] LABS: Alanine Aminotransferase 7 units/L (7-56); Albumin 3.7 g/dL (3.9-5); BUN/Creatinine Ratio 13; Blood Urea Nitrogen 8 mg/dL (7-17); Calcium 9.7 mg/dL (8.4-10.2); Hemolysis Index 13
[2019-11-09] MEDS: INSULIN LISPRO 100 UNIT/ML SUB-Q SCH ×4 (08:56→22:17)
[2019-11-09] MEDS ORDERED: LISINOPRIL 10 MG TAB PO SCH (10:00)
[2019-11-09] MEDS ORDERED: INSULIN GLARGINE HUM REC ANLOG 60 UNIT SQ SCH (10:00)
[2019-11-09] MEDS ORDERED: INSULIN GLARGINE 100 UNITS/ML SUB-Q SCH (10:00)
[2019-11-09] MEDS: FAMOTIDINE 20 MG/2 ML INJ IV SCH ×2 (10:51→21:57)
[2019-11-09] MEDS: ASPIRIN 325 MG TAB PO SCH (10:52)
[2019-11-09] MEDS ORDERED: BUTALB/ACETAMINOPHEN/CAFFEINE TAB PO PRN (10:54)
[2019-11-09] MEDS: INSULIN GLARGINE 100 UNITS/ML SUB-Q SCH ×2 (11:57→21:57)
--- NOTE | 2019-11-09 12:22 | Consultation ---
Medications and Allergies Allergies Allergy/AdvReac Type Severity Reaction Status Date / Time No Known Allergies Allergy Verified 12/28/18 16:24 Home Medications Medication Instructions Recorded Confirmed Last Taken Type Insulin Glargine,Hum.rec.anlog 60 unit SQ BID 11/09/19 11/09/19 11/08/19 History [Basagltiburcio Kwikpen U-100] Insulin Regular, Human [Novolin R] 16 units SQ QAC 11/09/19 11/09/19 11/08/19 History lisinopriL [Zestril TAB] 10 mg PO QDAY 11/09/19 11/09/19 11/07/19 History Active Meds: Active Medications Acetaminophen (Tylenol) 650 mg PO Q4H PRN PRN Reason: Pain MILD(1-3)/Fever >100.5 Acetaminophen/Butalbital/Caffeine (Fioricet) 1 tab PO Q4H PRN PRN Reason: Headache Albuterol (Proventil) 2.5 mg IH Q4HRT PRN PRN Reason: Shortness Of Breath Amlodipine Besylate (Amlodipine) 5 mg PO QDAY [facility] Aspirin (Aspirin) 325 mg PO QDAY [facility] Last Admin: 11/09/19 10:52 Dose: 325 mg Documented by: Famotidine (Pepcid) 20 mg IV BID [facility] Last Admin: 11/09/19 10:51 Dose: 20 mg Documented by: Hydromorphone HCl (Dilaudid) 0.5 mg IV Q3H PRN PRN Reason: Pain , Severe (7-10) Last Admin: 11/09/19 05:35 Dose: 0.5 mg Documented by: Sodium Chloride (Nacl 0.9% 1000 Ml) 1,000 mls @ 100 mls/hr IV DIRECT [facility] Last Admin: 11/08/19 23:54 Dose: 100 mls/hr Documented by: Insulin Glargine (Lantus) 30 units SUB-Q BID [facility] Last Admin: 11/09/19 11:57 Dose: 30 units Documented by: Insulin Human Lispro (Humalog) 0 unit SUB-Q ACHS [facility]; Protocol Last Admin: 11/09/19 11:57 Dose: 2 unit Documented by: Ondansetron HCl (Zofran) 4 mg IV Q8H PRN PRN Reason: Nausea And Vomiting Last Admin: 11/09/19 10:51 Dose: 4 mg Documented by: Oxycodone/Acetaminophen (Percocet 5/325) 1 tab PO Q6H PRN PRN Reason: Pain, Moderate (4-6) Sodium Chloride (Sodium Chloride Flush Syringe 10 Ml) 10 ml IV BID [facility] Last Admin: 11/09/19 10:54 Dose: 10 ml Documented by: Sodium Chloride (Sodium Chloride Flush Syringe 10 Ml) 10 ml IV PRN PRN PRN Reason: LINE FLUSH Physical Examination - Vital Signs Vital Signs: Vital Signs Pulse Resp BP Pulse Ox 109 H 15 141/97 99 11/08/19 15:15 11/08/19 15:15 11/08/19 15:15 11/08/19 15:15 Results - Laboratory Findings CBC and BMP: 11/09/19 04:20 11/09/19 04:20 Abnormal Lab Findings: Abnormal Labs 11/08/19 11/08/19 11/08/19 Unknown Unknown Unknown MCV 75 L MCH 25 L Seg Neutrophils % Sodium 129 L Potassium Chloride 92.6 L Creatinine 0.6 L Glucose 215 H POC Glucose Hemoglobin A1c ALT 6 L Albumin 3.5 L 11/09/19 11/09/19 11/09/19 02:39 04:20 04:20 MCV 76 L MCH 25 L Seg Neutrophils % 70.1 H Sodium 131 L Potassium 5.4 H Chloride 94.7 L Creatinine 0.6 L Glucose 290 H POC Glucose 286 H Hemoglobin A1c ALT Albumin 3.7 L 11/09/19 11/09/19 11/09/19 04:20 07:35 11:28 MCV MCH Seg Neutrophils % Sodium Potassium Chloride Creatinine Glucose POC Glucose 206 H 171 H Hemoglobin A1c 12.1 H ALT Albumin Assessment and Plan 49 YR OLD FEMALE WITH HISTORY OF DIABETES, HYPERTENSION AND HISTORY OF WORK RELATED BACK INJURY FROM WHICH SHE IS ON DISABILITY CAME IN WITH HISTORY OF HEADACHES FOR ABOUT THREE WEEKS. HEADACHES ARE DULL DURING THE DAY AND AT NIGHT STARTS THROBBING ON BOTH TEMPLES AND AROUND THE EYES, ASSOCIATED WITH NAUSEA AND AT TIMES VOMITING, WHEN THE HEADACHES GET WORSE IT IS ASSOCIATED WITH PHOTOPHOBIA AND SONOPHOBIA WELL. PATIENT ALSO COMPLAINS OF STIFFNESS IN THE UPPER CERVICAL REGION BILATERALLY A PAIN OFTEN RADIATING TO HER RIGHT HAND.SHE ALSO COMPLAINS OF NOT FEELING GOOD AND HAS SOME STRESS AND ANXIETY ABOUT HER CURRENT FINANCIAL SITUATION. PHYSICAL EXAMINATION. GENERAL- IN NO ACUTE DISTRESS. HAS DEPRESSED AFFECT. ANSWERS QUESTIONS APPROPRIATELY. HAS INSIGHT INTO HER PROBLEMS. HEART-NORMAL RATE AND RHYTHM. CRANIAL NERVES- ALL WITH IN NORMAL LIMIT MOTOR- WEAK RIGHT HAND PHYSICIAN RECRUITER, WEAK RIGHT BICEPS, AND TRICEPS,TENDER AND STIFF CERVICAL PARA SPINAL MUSCLES. REFLEXES- SLIGHTLY DECREASED RIGHT BICEPS, TRICEPS AND RIGHT BRACHIORADIALIS REFLEXES. SENSORY- DECREASED SENSATION TO PIN PRICK ON RT C5,C6,AND C7 DERMATOMES COORDINATION-WITH IN NORMAL LIMIT IMPRESSION. 1. PATIENT SEEMS TO HAVE MIXED HEADACHE,BOTH CHRONIC TENSION TYPE AND MIGRAINE 2. MULTIPLE CERVICAL RADICULOPATHY INVOLVING,RT C5,C6 AND 7 NERVE ROOTS WHICH IS ALSO CONTRIBUTING ADDITIONALLY TO HER TENSION TYPE HEADACHE. 3.DEPRESSION. RECOMMEND. 1.PLEASE START HER ON CYCLOBENZAPRINE 5MG PO BID ALONG WITH TYELENOL 500MG BID. 2.SUMATRIPTAN 50 MG AT ONSET OF SEVERE HEADACHE, MAY REPEAT IN ONE HR IF NO RESPONSE 3.SERTRALINE 25 MG PO QAM FOR DEPRESSION. 4. WILL NEED MRI OF CERVICAL SPINE TO LOOK FOR DISC PROTRUSION,
--- NOTE | 2019-11-09 12:24 | Consultation ---
History of Present Illness - Reason for Consult Consult date: 11/09/19 - History of Present Illness 49 yo F PMHx IDDM admitted to the hospital complaining of headaches. She notes that this began approximately 3 weeks prior to admission was located mostly in the bilateral frontal area of the head. She also complains of an associated nausea and vomiting for the 5 days prior to admission. She does not chronically have headaches in the past. Per the family it is reported that she was confused on the morning of admission, though per the ER note that had resolved by the time she got to hospital. Afebrile with a normal white count. Not currently on antibiotics. No cultures available for review. Imaging personally reviewed: CXR: NAD Head CTA: NAD Review of Systems: Bold if positive, otherwise negative General: fevers, chills, rigors HEENT: visual disturbance, diplopia, eye pain Respiratory: cough, sputum, hemoptysis, shortness of breath Cardiovascular: chest pain, syncope Gastrointestinal: nausea, vomiting, diarrhea, abdominal pain Genitourinary: dysuria, hematuria, flank pain Musculoskeletal: neck pain, back pain, joint pain, edema Neurologic: headaches, seizures Hematologic: easy bruising or bleeding Endocrine: night sweats, acute weight loss Skin: rash, jaundice, redness Psychiatric: suicidal, homicidal ideation Medications and Allergies Allergies Allergy/AdvReac Type Severity Reaction Status Date / Time No Known Allergies Allergy Verified 12/28/18 16:24 Home Medications Medication Instructions Recorded Confirmed Last Taken Type Insulin Glargine,Hum.rec.anlog 60 unit SQ BID 11/09/19 11/09/19 11/08/19 History [Bolivar Mc U-100] Insulin Regular, Human [Novolin R] 16 units SQ QAC 11/09/19 11/09/19 11/08/19 History lisinopriL [Zestril TAB] 10 mg PO QDAY 11/09/19 11/09/19 11/07/19 History Active Meds: Active Medications Acetaminophen (Tylenol) 650 mg PO Q4H PRN PRN Reason: Pain MILD(1-3)/Fever >100.5 Acetaminophen/Butalbital/Caffeine (Fioricet) 1 tab PO Q4H PRN PRN Reason: Headache Albuterol (Proventil) 2.5 mg IH Q4HRT PRN PRN Reason: Shortness Of Breath Amlodipine Besylate (Amlodipine) 5 mg PO QDAY [facility] Aspirin (Aspirin) 325 mg PO QDAY [facility] Last Admin: 11/09/19 10:52 Dose: 325 mg Documented by: Famotidine (Pepcid) 20 mg IV BID [facility] Last Admin: 11/09/19 10:51 Dose: 20 mg Documented by: Hydromorphone HCl (Dilaudid) 0.5 mg IV Q3H PRN PRN Reason: Pain , Severe (7-10) Last Admin: 11/09/19 05:35 Dose: 0.5 mg Documented by: Sodium Chloride (Nacl 0.9% 1000 Ml) 1,000 mls @ 100 mls/hr IV DIRECT [facility] Last Admin: 11/08/19 23:54 Dose: 100 mls/hr Documented by: Insulin Glargine (Lantus) 30 units SUB-Q BID [facility] Last Admin: 11/09/19 11:57 Dose: 30 units Documented by: Insulin Human Lispro (Humalog) 0 unit SUB-Q ACHS [facility]; Protocol Last Admin: 11/09/19 11:57 Dose: 2 unit Documented by: Ondansetron HCl (Zofran) 4 mg IV Q8H PRN PRN Reason: Nausea And Vomiting Last Admin: 11/09/19 10:51 Dose: 4 mg Documented by: Oxycodone/Acetaminophen (Percocet 5/325) 1 tab PO Q6H PRN PRN Reason: Pain, Moderate (4-6) Sodium Chloride (Sodium Chloride Flush Syringe 10 Ml) 10 ml IV BID [facility] Last Admin: 11/09/19 10:54 Dose: 10 ml Documented by: Sodium Chloride (Sodium Chloride Flush Syringe 10 Ml) 10 ml IV PRN PRN PRN Reason: LINE FLUSH Physical Examination - Physical Exam Narrative exam: Deferred due to PPE conservation strategy. - Constitutional Vitals: Vital Signs Temp Pulse Resp BP Pulse Ox 99.6 F 98 H 18 125/92 99 11/09/19 07:23 11/09/19 10:54 11/09/19 07:23 11/09/19 10:54 11/09/19 08:45 Temperature -Last 24 Hours Temperature 99.6 F Temperature 99.8 F Temperature 99.7 F Temperature 98.2 F Temperature 98.4 F Results - Labs CBC & Chem 7: 11/09/19 04:20 11/09/19 04:20 Labs: Abnormal lab results 11/08/19 11/08/19 11/08/19 Range/Units Unknown Unknown Unknown MCV 75 L (79-97) fl MCH 25 L (28-32) pg Seg Neutrophils % (40.0-70.0) % Sodium 129 L (137-145) mmol/L Potassium (3.6-5.0) mmol/L Chloride 92.6 L (98-107) mmol/L Creatinine 0.6 L (0.7-1.2) mg/dL Glucose 215 H (65-100) mg/dL POC Glucose (70-105) Hemoglobin A1c (4-6) % ALT 6 L (7-56) units/L Albumin 3.5 L (3.9-5) g/dL 11/09/19 11/09/19 11/09/19 Range/Units 02:39 04:20 04:20 MCV 76 L (79-97) fl MCH 25 L (28-32) pg Seg Neutrophils % 70.1 H (40.0-70.0) % Sodium 131 L (137-145) mmol/L Potassium 5.4 H (3.6-5.0) mmol/L Chloride 94.7 L (98-107) mmol/L Creatinine 0.6 L (0.7-1.2) mg/dL Glucose 290 H (65-100) mg/dL POC Glucose 286 H (70-105) Hemoglobin A1c (4-6) % ALT (7-56) units/L Albumin 3.7 L (3.9-5) g/dL 11/09/19 11/09/19 11/09/19 Range/Units 04:20 07:35 11:28 MCV (79-97) fl MCH (28-32) pg Seg Neutrophils % (40.0-70.0) % Sodium (137-145) mmol/L Potassium (3.6-5.0) mmol/L Chloride (98-107) mmol/L Creatinine (0.7-1.2) mg/dL Glucose (65-100) mg/dL POC Glucose 206 H 171 H (70-105) Hemoglobin A1c 12.1 H (4-6) % ALT (7-56) units/L Albumin (3.9-5) g/dL Assessment and Plan Cultures: None A/P: 49 yo F PMHx IDDM admitted with headaches, N/V and AMS #Headache: Patient afebrile and with a normal white count, so I doubt a bacterial meningitis at this point. Possible viral encephalitis, though she was alert and oriented in the ER so I will deer treatment. If LP is performed please send for analysis and culture. #COVID-19 rule out: patient with N/V which is a less common, but known symptom of COVID-19. Ok to test for COVID-19, follow up in-house PCR testing. Remove from precautions if negative. #N/V: probable viral etiology. Will defer on antibiotics at this point. #IDDM: Tight glycemic control for best outcomes. Recs: -hold off on antibiotics for now -follow up COVID-19 test, remove from precautions if negative. -If LP performed please send for analysis and culture Thank you for the consult, we will continue to follow. Stacy Haynes MD [facility] M: [phone] O: [phone] F: [phone]
--- NOTE | 2019-11-09 12:50 | Progress Note ---
Assessment and Plan /headache with low grade temp ? - will r/o COVID even though has low risk and does not have cough - likely from complex migraine or tension headache /Hyponatremia, improving IV Ns for now, Sec to Vomiting /Diabetes mellitus type 2, insulin dependent Cont home insulin and coverage /HTN (hypertension) Cont anti hypertensives / DVT prophylaxis On Heparin and GI prophylaxis Subjective Date of service: 11/09/19 Interval history: Patient seen and examined. Medical records and medication list reviewed. No acute event overnight noted by the RN. Patient c/o severe headache. Patient is tolerating diet. Discussed plan of care at bedside with patient. Objective - Constitutional Vitals: Vital Signs - 12hr 11/09/19 11/09/19 11/09/19 02:00 02:34 05:02 Temperature 99.7 F H Pulse Rate 95 H Respiratory 17 Rate Blood Pressure 142/102 O2 Sat by Pulse Oximetry 11/09/19 11/09/19 11/09/19 05:35 05:44 05:47 Temperature 99.8 F H Pulse Rate 97 H Respiratory 20 20 Rate Blood Pressure 114/78 O2 Sat by Pulse 99 Oximetry 11/09/19 11/09/19 11/09/19 06:05 07:23 08:45 Temperature 99.6 F Pulse Rate 95 H Respiratory 20 18 Rate Blood Pressure 104/65 O2 Sat by Pulse 99 99 Oximetry 11/09/19 10:54 Temperature Pulse Rate 98 H Respiratory Rate Blood Pressure 125/92 O2 Sat by Pulse Oximetry General appearance: Present: no acute distress, well-nourished - EENT Eyes: PERRL, EOM intact ENT: hearing intact, clear oral mucosa Ears: bilateral: normal - Neck Neck: supple, normal ROM - Respiratory Respiratory effort: normal Respiratory: bilateral: CTA - Cardiovascular Rhythm: regular Heart Sounds: Present: S1 & S2. Absent: gallop, rub Extremities: pulses intact, No edema, normal color, Full ROM - Gastrointestinal General gastrointestinal: Present: soft, non-tender, non-distended, normal bowel sounds - Integumentary Integumentary: clear, warm, dry - Musculoskeletal Musculoskeletal: 1, strength equal bilaterally - Neurologic Neurologic: moves all extremities - Psychiatric Psychiatric: memory intact, appropriate mood/affect, intact judgment & insight - Labs CBC & Chem 7: 11/09/19 04:20 04/28/20 05:15 Labs: Abnormal lab results 04/26/20 04/26/20 04/26/20 Range/Units Unknown Unknown Unknown MCV 75 L (79-97) fl MCH 25 L (28-32) pg Seg Neutrophils % (40.0-70.0) % Sodium 129 L (137-145) mmol/L Potassium (3.6-5.0) mmol/L Chloride 92.6 L (98-107) mmol/L Creatinine 0.6 L (0.7-1.2) mg/dL Glucose 215 H (65-100) mg/dL POC Glucose (70-105) Hemoglobin A1c (4-6) % ALT 6 L (7-56) units/L Albumin 3.5 L (3.9-5) g/dL 11/09/19 11/09/19 11/09/19 Range/Units 02:39 04:20 04:20 MCV 76 L (79-97) fl MCH 25 L (28-32) pg Seg Neutrophils % 70.1 H (40.0-70.0) % Sodium 131 L (137-145) mmol/L Potassium 5.4 H (3.6-5.0) mmol/L Chloride 94.7 L (98-107) mmol/L Creatinine 0.6 L (0.7-1.2) mg/dL Glucose 290 H (65-100) mg/dL POC Glucose 286 H (70-105) Hemoglobin A1c (4-6) % ALT (7-56) units/L Albumin 3.7 L (3.9-5) g/dL 11/09/19 11/09/19 11/09/19 Range/Units 04:20 07:35 11:28 MCV (79-97) fl MCH (28-32) pg Seg Neutrophils % (40.0-70.0) % Sodium (137-145) mmol/L Potassium (3.6-5.0) mmol/L Chloride (98-107) mmol/L Creatinine (0.7-1.2) mg/dL Glucose (65-100) mg/dL POC Glucose 206 H 171 H (70-105) Hemoglobin A1c 12.1 H (4-6) % ALT (7-56) units/L Albumin (3.9-5) g/dL - Imaging and cardiology Chest x-ray: report reviewed
[2019-11-09 16:01] LABS: C-Reactive Protein 0.1 mg/dL (0.00-1.30)
[2019-11-10] MEDS: SODIUM CHLORIDE 0.9% 1000 ML 1,000 ML IV SCH (02:07)
[2019-11-10 05:51] LABS: BUN/Creatinine Ratio 17; Blood Urea Nitrogen 10 mg/dL (7-17); Calcium 8.8 mg/dL (8.4-10.2); Hemolysis Index 2
[2019-11-10] MEDS: INSULIN LISPRO 100 UNIT/ML SUB-Q SCH ×3 (08:30→17:40)
[2019-11-10] MEDS: ASPIRIN 325 MG TAB PO SCH (09:17)
[2019-11-10] MEDS: FAMOTIDINE 20 MG/2 ML INJ IV SCH (09:17)
[2019-11-10] MEDS: INSULIN GLARGINE 100 UNITS/ML SUB-Q SCH (09:17)
[2019-11-10] MEDS ORDERED: amLODIPine 5 MG TAB PO SCH (10:00)
[2019-11-10 12:09] VITALS: BP 95/69
--- NOTE | 2019-11-10 13:04 | Progress Note ---
Assessment and Plan Cultures: None A/P: 49 yo F PMHx IDDM admitted with headaches, N/V and AMS #Headache: Patient afebrile and with a normal white count, so I doubt a bacterial meningitis at this point. #COVID-19 rule out: Testing negative. #N/V: probable viral etiology. Will defer on antibiotics at this point. #IDDM: Tight glycemic control for best outcomes. Recs: -COVID-19 testing negative. Okay to remove from precautions. -No antibiotics required at this point. Patient afebrile with a normal white count. Thank you for the consult, we will sign off. Please call with questions Stacy Haynes MD [facility] M: [phone] O: [phone] F: [phone] Subjective Date of service: 11/10/19 Interval history: Afebrile, normal white count. COVID-19 testing negative. Objective - Exam Narrative Exam: Physical Exam: Constitutional: Alert, cooperative. No acute distress Head, Ears, Nose: Normocephalic, atraumatic. External ears, nose normal Eyes: Conjunctivae/corneas clear. No icterus. No ptosis. Neck: Supple, no meningeal signs Oral: dentition fair, no thrush Cardiovascular: S1, S2 normal. Respiratory: Good air entry, clear to auscultation bilaterally GI: Soft, non-tender; bowel sounds normal. No peritoneal signs. Musculoskeletal: No pedal edema, no cyanosis. Skin: No rash or abscess Hem/Lymphatic: No palpable cervical or supraclavicular nodes. No lymphangitis Psych: Mood ok. Affect normal Neurological: Awake, alert, oriented. No gross abnormality - Constitutional Vitals: Vital Signs Temp Pulse Resp BP Pulse Ox 97.6 F 104 H 16 95/69 99 11/10/19 12:00 11/10/19 12:00 11/10/19 12:00 11/10/19 12:00 11/10/19 12:00 Temperature -Last 24 Hours Temperature 97.6 F Temperature 99.0 F Temperature 97.7 F Temperature 98.3 F - Labs CBC & Chem 7: 11/09/19 04:20 11/10/19 05:15 Labs: Abnormal lab results 11/09/19 11/09/1920 Range/Units 15:05 15:05 16:39 D-Dimer 478.69 H (0-234) ng/mlDDU Sodium (137-145) mmol/L Chloride (98-107) mmol/L Creatinine (0.7-1.2) mg/dL Glucose 377 H (65-100) mg/dL POC Glucose 330 H (70-105) 11/09/19 11/10/19 11/10/19 Range/Units 22:08 05:15 08:28 D-Dimer (0-234) ng/mlDDU Sodium 133 L (137-145) mmol/L Chloride 97.2 L (98-107) mmol/L Creatinine 0.6 L (0.7-1.2) mg/dL Glucose 189 H (65-100) mg/dL POC Glucose 162 H 211 H (70-105)
[2019-11-10] MEDS ORDERED: SUMAtriptan SUCCINATE 50 MG TAB PO PRN (13:12)
--- NOTE | 2019-11-10 13:30 | Discharge Summary ---
Providers - Providers Date of Admission: 11/08/19 17:28 Date of discharge: 11/10/19 Attending physician: MARYAM BENTLEY 11/09/19 10:51 Consult to Physician [CONS] Routine Comment: Consulting Provider: MARIAN MATTHEWS Physician Instructions: Reason For Exam: headache 11/09/19 11:01 Consult to Physician [CONS] Routine Comment: Consulting Provider: KAVIN LANDRY Physician Instructions: Reason For Exam: possible covid Primary care physician: SAND HAULER Hospitalization Condition: Good Pertinent studies: Chest x-ray CT head Cervical spine CT MRI cervical spine Hospital course: 49-year-old female with history of diabetes, hypertension and history of work- related back injury from which she is on disability came to the hospital with complaints of headache for about 3 weeks associated with nausea vomiting along with photophobia and sonophobia. Patient was admitted for further evaluation management. CT head and cervical spine was obtained and patient noted to have CT 3, C6 and 7 now approved radiculopathy. Neurology was consulted and recommended to place the patient on 5 reset and sumatriptan as needed for possible migraine headache and to continue outpatient follow-up with neurologist. Because of COVID-19 pandemic and patient's complaints of headache nausea vomiting she was also ruled out from COVID-19. Patient symptom resolved with medical management and she was then discharged home in stable condition with outpatient follow-up. Discharge diagnosis: /headache - likely from complex migraine or tension headache - ruled out COVID even though has low risk and does not have cough -Advised to continue Fioricet and sumatriptan as needed and to follow-up outpatient with neurology /Hyponatremia, improved with IV fluid - Sec to Vomiting /Nausea vomiting, likely due to viral illness and migraine headache -Resolved /Diabetes mellitus type 2, insulin dependent - Cont home insulin and coverage, a1c 12.1 /Hypertension, placed on Norvasc /Hyperkalemia, resolved - likely from ACEI which was stopped /Depression, started on sertraline Physical exam: GENERAL: well-developed and well-nourished -[place] female lying on bed appeared to be in no discomfort. HEENT: Normocephalic. Atraumatic. No conjunctival congestion or icterus. Patient has moist mucous membranes. NECK: Supple. Trachea midline. CHEST/LUNGS: Clear to auscultated bilaterally, breathing nonlabored. No wheezes crackles or rhonchi. HEART/CARDIOVASCULAR: Regular in rate and rhythm. S1 and S2 positive. ABDOMEN: Abdomen is soft, nontender. Patient has normal bowel sounds. SKIN: There is no rash. Warm and dry. NEURO: Follows command. MOTOR- WEAK RIGHT HAND POLE LIFT OPERATOR, WEAK RIGHT BICEPS, AND TRICEPS,TENDER AND STIFF CERVICAL PARA SPINAL MUSCLES. REFLEXES- SLIGHTLY DECREASED RIGHT BICEPS, TRICEPS AND RIGHT BRACHIORADIALIS RE FLEXES. SENSORY- DECREASED SENSATION TO PIN PRICK ON RT C5,C6,AND C7 DERMATOMES COORDINATION-WITH IN NORMAL LIMIT MUSCULOSKELETAL: No joint effusion or tenderness. EXTRIMITY: No edema, no cyanosis or clubbing. PSYCH: Cooperative. Disposition: DC-01 TO HOME OR SELFCARE Time spent for discharge: 34 minutes Core Measure Documentation - Palliative Care Palliative Care/ Comfort Measures: Not Applicable - Core Measures Any of the following diagnoses?: none Exam - Constitutional Vitals: Temp Pulse Resp BP Pulse Ox 97.6 F 104 H 16 95/69 99 11/10/19 12:00 11/10/19 12:00 11/10/19 12:00 11/10/19 12:11/10/19 12:00 Plan Activity: advance as tolerated Diet: diabetic Special Instructions: record blood sugar diary Follow up with: PRIMARY MD MARGARET [Primary Care Provider] - 3-5 Days LYNNETTE CRUM MD [Staff Physician] - 7 Days Prescriptions: amLODIPine 5 mg PO QDAY #30 tablet Butalb/Acetamin/Caff 50-325-40 [Fioricet 50-325-40] 1 tab PO Q4H PRN #14 tablet PRN Reason: Headache SUMAtriptan succinate [Imitrex] 50 mg PO Q2H PRN #20 tablet PRN Reason: Headache Sertraline [Zoloft] 25 mg PO QDAY #30 tablet
[2019-11-10] MEDS ORDERED: SERTRALINE 25 MG TAB PO SCH (14:00)
--- NOTE | 2019-11-10 15:57 | Magnetic Resonance Report ---
MRI CERVICAL SPINE 11/10/2019 INDICATION / CLINICAL INFORMATION: neck pain. COMPARISON: None available. FINDINGS: GENERAL OBSERVATIONS: Unenhanced MR images of the cervical spine were obtained. There is no evidence of spinal cord compression or intrinsic spinal cord abnormality. There is some subtle prominence to the ventral epidural space at the C2, C3, and C4 levels. This is b est appreciated on the midline sagittal images of the ventral epidural space has thickness of approxi mately 3 mm.. Although this may be a normal variant, the possibility of epidural fluid also be consid ered. Correlation with details of clinical circumstances and consideration for additional follow-up i maging after contrast administration is recommended. There is no evidence of abnormal signal within the disc spaces, vertebral bodies, or paraspinal soft tissues. [id number] ANALYSIS: Some mild degenerative disc changes are present. C7-T1: Normal. C6-7: Normal. C5-6: Mild symmetric diffuse disc bulging. C4-5: Mild symmetric diffuse disc bulging. C3-4: Minimal symmetric diffuse disc bulging. C2-3: Unremarkable CRANIO-CERVICAL JUNCTION: Unremarkable. BONE MARROW: Unremarkable PARASPINAL SOFT TISSUES: No significant abnormality. IMPRESSION: Subtle thickening of the ventral epidural soft tissues as described above. Postcontrast imaging renny khalil for additional evaluation. See above discussion. Signer Name: Tony Dolan MD Signed: 11/10/2019 3:53 PM Workstation Name: [id number]
[2019-11-10] MEDS ORDERED: FAMOTIDINE 20 MG TAB PO SCH (22:00)
== END 2019-11-10 16:55 | disposition home or self-care (01) | DRG 103 ==
LOC: ED 14:56 → 3A 17:28 → 2B-ACE 17:48 → 3A 11-09 13:42
PROVIDERS: ADMIT Internal Medicine; ATTEND Internal Medicine
DX: G43.809 Other migraine, not intractable, without status migrainosus (principal); E87.1 Hypo-osmolality and hyponatremia; G93.40 Encephalopathy, unspecified; B34.9 Viral infection, unspecified; I10 Essential (primary) hypertension; E11.9 Type 2 diabetes mellitus without complications; E87.5 Hyperkalemia; F32.9 Major depressive disorder, single episode, unspecified; Z90.710 Acquired absence of both cervix and uterus; Z79.4 Long term (current) use of insulin; Z82.49 Family history of ischemic heart disease and other diseases of the circulatory system; Z03.818 Encounter for observation for suspected exposure to other biological agents ruled out
CPT/HCPCS: 36415; 70450; 70496; 70498; 71045; 72141; 80048; 80053; 80076; 81001; 82550; 82553; 82728; 82947; 82962; 83036; 83615; 83735; 83880; 83930; 83935; 84145; 84300; 84443; 84484; 84703; 85025; 85379; 85610; 85670; 85730; 86140; 93005; G0378; J1170; J1815; J2405; J7030; Q0162; Q9967; U0003